=== PATIENT | male | born 1950 | race Two or more races ===

== ENCOUNTER → 2024-09-28 | Outpatient (CLI) | payer OTHER, SELFPAY ==
[2024-09-28 12:13] LABS: Basophils % (Auto) 1 % (0-2.5); Eosinophils # (Auto) 0.5 Thou/mm3 (0.0-0.5); Eosinophils % (Auto) 9 % (0-10); Hematocrit 40.7 % (41.0-53.0); Hemoglobin 13.9 g/dL (13.5-16.0); Immature Granulocytes % (Auto) 0 % (0-0); Immature Granulocytes Auto 0.02 Thou/mm3 (0.00-0.00); Lymphocytes # (Auto) 1.6 Thou/mm3 (1.0-4.8); Lymphocytes % (Auto) 28 % (10-50); Mean Corpuscular HGB Conc 34.2 g/dl (31.0-37.0); Mean Corpuscular Hemoglobin 31.8 pg (25.0-35.0); Mean Corpuscular Volume 93 fL (80-100); Monocytes # (Auto) 0.4 Thou/mm3 (0.0-0.8); Monocytes % (Auto) 7 % (0-12); Neutrophils # (Auto) 3.1 Thou/mm3 (1.8-7.7); Neutrophils % (Auto) 55 % (37-80); Nucleated Red Blood Cell % 0 /100 WBC (0); Platelet Count 164 Thou/mm3 (140-440); RDW Standard Deviation 50.4 fL (35.1-43.9); Red Blood Count 4.37 Miln/mm3 (4.50-5.90); White Blood Count 5.7 Thou/mm3 (3.8-10.6)
[2024-09-28 12:35] LABS: Alanine Aminotransferase 45 U/L (10-49); Albumin, Serum 3.4 gm/dL (3.4-4.8); Albumin/Globulin Ratio 0.9 (1.2-2.2); Alkaline Phosphatase 139 U/L (46-116); Anion Gap 7 (7-16); Aspartate Amino Transferase 62 U/L (0-34); BUN/Creatinine Ratio 14 Ratio (12-20); Bilirubin,Total 2.6 mg/dL (0.3-1.2); Blood Urea Nitrogen 10 mg/dL (9-23); Calcium 9.1 mg/dL (8.3-10.6); Calcium (Corrected) 9.6 mg/dL (8.5-10.1); Carbon Dioxide 28.4 mMol/L (20.0-31.0); Chloride 104 mMol/L (98-107); Creatinine (Component) 0.7 mg/dL (0.6-1.3); Globulin 3.6 gm/dL (2.3-3.5); Glucose 128 mg/dL (74-106); Osmolality,Calculated 278 (275-295); Potassium 3.7 mMol/L (3.4-5.1); Sodium 139 mMol/L (136-145); Thyroid Stimulating Hormone 5.87 uIU/mL (0.55-4.78); eGFR > 60 See Note
[2024-10-06 06:33] LABS: ANA Screen, IFA NEGATIVE (NEGATIVE)
== END | disposition home or self-care (01) ==
LOC: COPL 11:16
PROVIDERS: PCP Internal Medicine; Referring Provider Specialist; Visit Provider Specialist
DX: R10.32 Left lower quadrant pain (principal); R14.0 Abdominal distension (gaseous); R10.13 Epigastric pain; R53.83 Other fatigue
CPT/HCPCS: 36415; 80053; 84443; 85025; 86038

== ENCOUNTER 2024-10-09 11:51 | Emergency (ER) | payer OTHER, SELFPAY ==
[2024-10-09 11:56] VITALS: BP 130/88; PULSE 63; RESP 19; TEMP 37; O2SAT 99; BMI 38.0
--- NOTE | 2024-10-09 12:13 | PD.EDRME ---
Rapid Medical Screening Exam RME Arrival date/time: 10/09/24 11:51 74-year-old male presents to the emergency department with complaints of throat pain and tightness for 3 weeks. Was sent over for abnormal CT. I have greeted and performed a focused initial assessment of this patient. Initial appropriate labs ordered at this time. A comprehensive ED assessment and evaluation of the patient and analysis of all test and completion of medical decision making process will be conducted by additional ED provider. Chief Complaint: Dental/Oral/Throat Time Seen by Provider: 10/09/24 12:12 Vital signs: Vital Signs Temperature 98.6 F 10/09/24 11:56 Pulse Rate 63 10/09/24 11:56 Respiratory Rate 19 10/09/24 11:56 Blood Pressure 130/88 H 10/09/24 11:56 Pulse Oximetry (%) 99 10/09/24 11:56 Oxygen Delivery Method Room Air 10/09/24 11:56
[2024-10-09 12:58] LABS: Basophils % (Auto) 0 % (0-2.5); Eosinophils # (Auto) 0.6 Thou/mm3 (0.0-0.5); Eosinophils % (Auto) 8 % (0-10); Hematocrit 46.8 % (41.0-53.0); Hemoglobin 15.7 g/dL (13.5-16.0); Immature Granulocytes % (Auto) 0 % (0-0); Immature Granulocytes Auto 0.02 Thou/mm3 (0.00-0.00); Lymphocytes # (Auto) 1.4 Thou/mm3 (1.0-4.8); Lymphocytes % (Auto) 21 % (10-50); Mean Corpuscular HGB Conc 33.5 g/dl (31.0-37.0); Mean Corpuscular Hemoglobin 31.5 pg (25.0-35.0); Mean Corpuscular Volume 94 fL (80-100); Monocytes # (Auto) 0.4 Thou/mm3 (0.0-0.8); Monocytes % (Auto) 7 % (0-12); Neutrophils # (Auto) 4.3 Thou/mm3 (1.8-7.7); Neutrophils % (Auto) 64 % (37-80); Nucleated Red Blood Cell % 0 /100 WBC (0); Platelet Count 150 Thou/mm3 (140-440); Red Blood Count 4.98 Miln/mm3 (4.50-5.90); White Blood Count 6.8 Thou/mm3 (3.8-10.6)
[2024-10-09 13:21] LABS: INR 1.3 (0.9-1.3); Partial Thromboplastin Time 25.4 Seconds (22.0-36.0); Prothrombin Time 13.5 Seconds (9.0-12.2)
[2024-10-09 13:22] LABS: Alanine Aminotransferase 24 U/L (10-49); Albumin, Serum 3.9 gm/dL (3.4-4.8); Albumin/Globulin Ratio 0.9 (1.2-2.2); Alkaline Phosphatase 146 U/L (46-116); Anion Gap 5 (7-16); Aspartate Amino Transferase 27 U/L (0-34); BUN/Creatinine Ratio 13 Ratio (12-20); Bilirubin,Total 2.6 mg/dL (0.3-1.2); Blood Urea Nitrogen 10 mg/dL (9-23); Calcium 9.7 mg/dL (8.3-10.6); Calcium (Corrected) 9.8 mg/dL (8.5-10.1); Carbon Dioxide 31.1 mMol/L (20.0-31.0); Chloride 99 mMol/L (98-107); Creatinine (Component) 0.8 mg/dL (0.6-1.3); Globulin 4.2 gm/dL (2.3-3.5); Glucose 138 mg/dL (74-106); Magnesium 2.1 mg/dL (1.6-2.6); Osmolality,Calculated 271 (275-295); Phosphorous 2.6 mg/dL (2.4-5.1); Sodium 135 mMol/L (136-145); Total Protein 8.1 gm/dL (5.7-8.2); eGFR > 60 See Note
[2024-10-09] MEDS: DEXAMETHASONE SOD PHOS INJ 10 MG/ML VIAL 8 MG IV (14:32)
--- NOTE | 2024-10-09 16:06 | PD.EDNECK ---
ED Neck Injury Pain RME/HPI General Chief Complaint: Dental/Oral/Throat Stated Complaint: THROAT RESTRCTED; SENT OVER AFTER THROAT CT Time Seen by Provider: 10/09/24 12:12 Arrival date/time: 10/09/24 11:51 RME / HPI RME / HPI Narrative: 10/09/24 11:51 74-year-old male known case of diabetes, hypertension, liver disease, was brought to the ED by his daughter due to findings on CT scan of his neck. Patient has been having dysphagia for the past 2 months, found to have a neck mass in which he was referred to CT scan and was found to have a large mass on the right side impinging airway. Patient reported changing voice, difficulty swallowing, however no saliva drooling and no pain. Patient denied any fever or chills and denied any redness or hotness of the overlying skin or ear discharge. The daughter reported that he has been following up with the oncologist a biopsy was done and it was inconclusive. Related Data Home Medications ?Medication ?Instructions ?Recorded ?Confirmed metoprolol tartrate 25 mg tablet 25 mg PO BID 11/27/20 02/20/22 donepezil 10 mg tablet 10 mg PO QDAY 02/20/22 02/20/22 Previous Rx's ?Medication ?Instructions ?Recorded citalopram 20 mg tablet (Celexa) 20 mg PO QDAY #30 tabs 01/01/20 lactulose 10 gram/15 mL (15 mL) 20 g (30 mL) PO BID #1,440 mL 12/05/21 oral solution Allergies Allergy/AdvReac Type Severity Reaction Status Date / Time No Known Allergies Allergy Verified 10/09/24 11:54 ED Exam Narrative Physical exam: GEN: AOx3, able to speak full sentences, hoarseness of voice, no stridor. HEENT: Right sided neck swelling,, I will hold on the throat exam due to airway narrowing, oral mucosa moist, neck supple CVS: RRR, S1-S2 present, no murmurs appreciated RESP: CTAB GI: soft,non distended, non tender, NBS MSK: able to move all 4 limbs, no lower extremity edema SKIN: warm and dry SUPERVISOR VENDOR QUALITY: CN II-XII and Sensation grossly intact. Course Quality Measures none Orders Category Date Time Status Insert IV STAT Care 10/09/24 12:56 Active NPO NOW Care 10/09/24 12:56 Active Referral - Vessel Engineer Stat Cons 10/09/24 14:01 Active Diet NPO (NOW) Diet 10/09/24 12:56 Active CBC Stat Lab 10/09/24 12:40 Completed Comprehensive Metabolic Panel Stat Lab 10/09/24 12:40 Completed Magnesium Stat Lab 10/09/24 12:40 Completed PT [Prothrombin Time with INR] Stat Lab 10/09/24 12:40 Completed PTT [Partial Thromboplastin Time] Stat Lab 10/09/24 12:40 Completed Phosphorous Stat Lab 10/09/24 12:40 Completed Dexamethasone Inj [Decadron Inj] Med 10/09/24 17:10 Discontinued 4 mg IVP X1 ONE Dexamethasone Inj [Decadron Inj] Med 10/09/24 12:56 Discontinued 8 mg IV X1 ONE Ketorolac Inj [Toradol Inj] Med 10/09/24 17:22 Discontinued 30 mg IVP X1 ONE Sodium Chloride 0.9% 1000 ml [Ns] 1,000 ml Med 10/09/24 17:10 Active IV 100 mls/hr Vital Signs Vital signs: Vital Signs Temperature 98.6 F 10/09/24 11:56 Pulse Rate 63 10/09/24 11:56 Respiratory Rate 19 10/09/24 11:56 Blood Pressure 130/88 H 10/09/24 11:56 Pulse Oximetry (%) 99 10/09/24 11:56 Oxygen Delivery Method Room Air 10/09/24 11:56 Neck Pain MDM Narrative MDM Narrative:: On evaluation patient was found to have change in voice, however his vital stable. Patient was given dexamethasone 8 mg IV x 1. 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 How is presenting disease/condition affected by chronic disease/condition?: no chronic disease Evaluation data The following diagnostics were reviewed and interpreted by me:: lab results, radiology exam(s) and EKG tracing(s) Lab and/or radiology exams considered but not ordered:: none Interpretation Summary: Threatend airway 2/2 neck mass Medications / Prescriptions Medications or Prescriptions considered but not ordered:: none Medication administrations:: Medication Administration History Sodium Chloride (Ns) 1,000 mls @ 100 mls/hr IV .Q10H CARA Stop: 10/10/24 17:09 Last Admin: 10/09/24 17:58 Dose: 100 mls/hr Documented By: MARIYA Discontinued Medications Dexamethasone Sodium Phosphate (Dexamethasone Sod Phos Inj 10 Mg/Ml Vial) 8 mg IV X1 ONE Stop: 10/09/24 12:57 Last Admin: 10/09/24 14:32 Dose: 8 mg Documented By: MARIYA Dexamethasone Sodium Phosphate (Dexamethasone Sod Phos Inj 4 Mg/Ml Vial) 4 mg IVP X1 ONE; Protocol Stop: 10/09/24 17:11 Last Admin: 10/09/24 17:32 Dose: 4 mg Documented By: MARIYA Ketorolac Tromethamine (Ketorolac Inj 30 Mg/Ml Vial) 30 mg IVP X1 ONE Stop: 10/09/24 17:23 Last Admin: 10/09/24 17:33 Dose: 30 mg Documented By: MARIYA as above if given Consultations Consultation(s) initiated? (list below): Yes Diagnosis Neck Differential Diagnosis: other Most likely diagnosis given after review of the tests above:: Neck mass with threatened airway Admission Indicated Admission indicated?: indicated Admission Request Was there a request for admission?: Yes Admission Attestation Admission request attestation: Discussed case with [] from Hospitalist service regarding admission. Discussed patients ED course, exam findings, labs, and radiology results. The Hospitalist [agrees,declines] to accept the patient for admission. Disposition Plan Disposition Plan: Transfer Critical Care Time Critical Care Time Critical Care Time: Yes Total Critical Care Time (min.): 30 Attestation: The high probability of sudden, clinically significant deterioration in the patient's condition required the highest level of my preparedness to intervene urgently. The services I provided to this patient were to treat and/or prevent clinically significant deterioration. Services included the following: chart data review, reviewing nursing notes and/or old charts, documentation time, nissan sales consultant collaboration regarding findings and treatment options, medication orders and management, direct patient care, vital sign assessments and ordering, interpreting and reviewing diagnostic studies and lab tests. Aggregate critical care time includes only time during which I was engaged in work directly related to the patient's care, as described above, whether at bedside or elsewhere in the Emergency Department. It did not include time spent performing other reported procedures or the services of residents, students, nurses or physician assistants. Discharge Plan Plan Patient Disposition: [facility] Pt Being Transferred to: [facility] Service Needed for Transfer: Ear, Nose, Throat Prescriptions/Referrals Prescriptions/Med Rec: No Action citalopram [Celexa] 20 mg tablet 20 mg PO QDAY Qty: 30 0RF metoprolol tartrate 25 mg tablet 25 mg PO BID Patient Comments: TAKE 1 TABLET BY MOUTH 2 TIMES A DAY lactulose 10 gram/15 mL (15 mL) solution 20 g PO BID Qty: 1440 0RF donepezil 10 mg Tablet 10 mg PO QDAY Referrals: Rubi Emerson MD [Primary Care Provider] - In 1 week Problem List Clinical Impression: Mass in neck Patient/Caregiver Discharge Instructions Print Language: [place] Stand Alone Forms: Dina Award Info., Patient Portal Info Letter
[2024-10-09 16:39] VITALS: BP 166/87; PULSE 68; RESP 19; TEMP 36.8; O2SAT 98
--- NOTE | 2024-10-09 17:21 | PC.CM ---
Addendum entered by Nikolai Rodrigues RN 10/09/24 18:34: Flight crew confirmation of cook pickled meat at 1925. Addendum entered by Nikolai Rodrigues RN 10/09/24 18:06: TC RN contacted to set up transport via flight crew for compromised airway. E[place] at airport 191. Addendum entered by Nikolai Rodrigues RN 10/09/24 18:04: Patient accepted at [facility] by Dr. Zay Roque, phone number for report [phone], ER CN updated and packet delivered. Addendum entered by Nikolai Rodrigues RN 10/09/24 17:23: 1645-Transfer packets created x 2 and copy of images on disc. Dr. Dasilva requesting air transport due to compromised airway. Original Note: 1635- [facility] declined as they do not have ENT services. 1630- Transfer initiated for ENT sevices, clinicals sent to [facility], [facility], and [facility].
[2024-10-09] MEDS: DEXAMETHASONE SOD PHOS INJ 4 MG/ML VIAL IVP (17:32)
[2024-10-09] MEDS: KETOROLAC INJ 30 MG/ML VIAL IVP (17:33)
[2024-10-09] MEDS: SODIUM CHLORIDE 0.9% 1000 ML 1,000 ML 100 ML IV (17:58)
--- NOTE | 2024-10-09 19:11 | PC.NURSE ---
Called and gave report to Malcolm at [facility] in [place].
[2024-10-09 19:25] VITALS: BP 130/86; PULSE 66; RESP 20; TEMP 36.8; O2SAT 95
--- NOTE | 2024-10-09 19:36 | PC.NURSE ---
Report was given to Steve Mckenna RN and [facility].
== END 2024-10-09 19:40 | disposition short-term general hospital (02) ==
PROVIDERS: Nurse Practitioner Primary Care; Student in an Organized Health Care Education/Training Program; Emergency Provider Emergency Medicine; PCP Internal Medicine
DX: R22.1 Localized swelling, mass and lump, neck (principal); Z75.1 Person awaiting admission to adequate facility elsewhere
CPT/HCPCS: 36415; 80053; 83735; 84100; 85025; 85610; 85730; 96374; 96375; 96376; 99291; J1100; J1885; J7030

== ENCOUNTER 2024-12-03 17:11 | Inpatient (IN) | payer OTHER, MEDICAID, SELFPAY ==
[2024-12-03 14:45] VITALS: BMI 29.6
--- NOTE | 2024-12-03 15:54 | PC.SS ---
This SSD met with resident RP Elaine SantaEduardo, went over admission packet and facility question. Resident is DNR with selective treatment, jew caodaism and will accept spiritual care visits from inside sales professional services. Elaine said resident has history of depression, she states she is unaware what has caused his depression as he has a long history of it. Elaine states her father is a registered voter. Resident is not conserved or has a POA in place, this SSD has offered to assist with POA/Advance Directive. Elaine said she will speak with her sister about completing POA if father can participate otherwise she would look into a conservatorship. resident wears glasses is not hard or hearing. Resident will be seen by integrated logistics programs director, laminator hand and dentist for initial consultation. This SSD to make daily contact with resident and monitor for changes in mood and behavior and offers emotional support as he will be adjusting to new environment.
--- NOTE | 2024-12-03 16:39 | XR_ITS ---
Examination: AP chest single view Findings: AP portable upright chest single view Exam date and time: December 03, 2024 1720 hrs. Indications: Hypoxic respiratory failure, tracheal tube placement Findings: Tracheostomy tube tip 5 cm above eveline Atelectasis versus mild pneumonia right base Normal heart size Reduced inspiratory effort Impression: Tracheostomy tube tip 5 cm above eveline
--- NOTE | 2024-12-03 16:42 | EKG_ITS ---
[facility] Test Date: 2024-12-04 Pat Name: RAMON RAMIREZ Department: Room: - Gender: Male Bandoleer Packer: BAKARI : 1950 Requested By: Anuel Paul Order Number: [id number] Reading MD: Anuel Paul Measurements Intervals Concan Rate: 72 P: 16 MS: 124 QRS: 7 QRSD: 86 T: -31 QT: 350 QTc: 386 Interpretive Statements SINUS RHYTHM NONSPECIFIC T-WAVE ABNORMALITY Compared to ECG 05/08/2022 16:10:24 No significant changes /store/S0/[id number]/ecg/[id number].pdf
[2024-12-03 16:45] VITALS: PULSE 90; RESP 20; O2SAT 94
[2024-12-03 17:17] LABS: Base Excess 7 (-3-3); HCO3 33 mEq/L (20-26); Inspired Oxygen, FIO2 78 %; O2 Saturation 90 % (91-98); PCO2 51 mmHg (32.0-48.0); PO2 58 mmHg (83-108); pH, Arterial 7.41 (7.35-7.45)
[2024-12-03 17:18] LABS: Allen Test Performed/OK; Puncture Site Right Radial
[2024-12-03 18:14] LABS: Basophils % (Auto) 0 % (0-2.5); Eosinophils # (Auto) 0.6 Thou/mm3 (0.0-0.5); Eosinophils % (Auto) 3 % (0-10); Hematocrit 39.4 % (41.0-53.0); Hemoglobin 13.1 g/dL (13.5-16.0); Immature Granulocytes % (Auto) 1 % (0-0); Immature Granulocytes Auto 0.12 Thou/mm3 (0.00-0.00); Lymphocytes # (Auto) 2.3 Thou/mm3 (1.0-4.8); Lymphocytes % (Auto) 13 % (10-50); Mean Corpuscular HGB Conc 33.2 g/dl (31.0-37.0); Mean Corpuscular Hemoglobin 30.1 pg (25.0-35.0); Mean Corpuscular Volume 91 fL (80-100); Monocytes # (Auto) 1.5 Thou/mm3 (0.0-0.8); Monocytes % (Auto) 8 % (0-12); Neutrophils # (Auto) 13.3 Thou/mm3 (1.8-7.7); Neutrophils % (Auto) 75 % (37-80); Nucleated Red Blood Cell % 0 /100 WBC (0); Platelet Count 174 Thou/mm3 (140-440); RDW Standard Deviation 51.9 fL (35.1-43.9); Red Blood Count 4.35 Miln/mm3 (4.50-5.90); White Blood Count 17.8 Thou/mm3 (3.8-10.6)
[2024-12-03 18:50] VITALS: PULSE 81; RESP 18; O2SAT 99
[2024-12-03 19:00] LABS: Albumin, Serum 3.4 gm/dL (3.4-4.8); Anion Gap 8 (7-16); BUN/Creatinine Ratio 28 Ratio (12-20); Blood Urea Nitrogen 14 mg/dL (9-23); Calcium 9.1 mg/dL (8.3-10.6); Calcium (Corrected) 9.6 mg/dL (8.5-10.1); Carbon Dioxide 30.1 mMol/L (20.0-31.0); Chloride 98 mMol/L (98-107); Creatinine (Component) 0.5 mg/dL (0.6-1.3); Glucose 111 mg/dL (74-106); Glucose,Fasting 111 mg/dL (74-106); Osmolality,Calculated 273 (275-295); Phosphorous 2.7 mg/dL (2.4-5.1); Potassium 3.9 mMol/L (3.4-5.1); Sodium 136 mMol/L (136-145); Thyroid Stimulating Hormone 8.97 uIU/mL (0.55-4.78); eGFR > 60 See Note
--- NOTE | 2024-12-03 19:04 | PC.NURSE ---
Resident arrived from [facility] in [place] at 1645. Admitted under the care of Dr. Paul. Resident arrived via gurney accompanied by RT and ambulance crew. General assessment done upon arrival. Res. alert and oriented x3. presents aphasia. trach in place, blow by need it for oxygen need. resident sating 94/95 %. placed on continuous pulse ox as new admission. Resident able to follow commands weakness noted to all extremities but still able to move on command. No skin issues noted other than large bruise to top of left hand. Resident had a brand new PEG tube insertion today at previous facility, Dressing dry and intact. Initiated tube feeding at rate of 10ml to increased 10ml Q8hr till reach goal of 80. Family was also interviewed and offered education. Notified carried out almost all orders. Hand off report will be given to Mary WISE nurse. Also ABG critical report received Denise LINO called new order to place resident on % with 10L. Vital signs stable at this time. Please refer to Vital signs sheet.
--- NOTE | 2024-12-03 22:30 | PD.SAHP ---
Physical exam Physical Exam Vital signs: Temp Pulse Resp BP Pulse Ox O2 Del Method O2 Flow Rate 97.1 F 82 18 107/62 99 Blow-by 6 12/06/24 06:00 12/06/24 06:00 12/06/24 06:00 12/06/24 06:00 12/06/24 06:00 12/06/24 06:00 12/06/24 00:05 FiO2 28 12/06/24 00:05 Narrative: Pt looks comfortable and responds appropriately to simple commands with nod of his head VSS Constitutional Constitutional: no acute distress, average body habitus and cooperative HEENT Exam Head: Present normocephalic and atraumatic Eye: Present EOMI and PERRL ENT: Present mucous membranes moist Neck Exam Comments: severe lymph adenopathy of the Head and Neck chains predominantly of the R side with marked swelling Chest/Breast/Axilla Exam Comments: NAD Respiratory Exam Respiratory: Present chest non-tender, lungs clear, normal breath sounds and no resp distress Comments: pt with a Tracheostomy in place t0 blow by and has some secretions needing suctioning Cardiovascular Exam Cardiovascular: Present RRR, S1 and S2 Abdominal Exam Abdominal: Present soft and normoactive bowel sounds Comments: Feeding G tube in place and clean Rectal Exam Comments: deferred Exam Comments: NAD Extremities Exam Comments: trace edema Back/Spine/Pelvis Exam Comments: NAD Skin Exam Comments: NAD Neurological Exam Neurological: Present alert (responds with nod of his head and is appropreate and does try to formulate words but presence of tracheostomy makes it difficult for adequate phonation) Comments: He has had history of Dementia as mentioned in his notes but difficult to test in detail considering his current status Psychiatric Exam Psychiatric: Present normal affect and normal thought process Rehabilitation potential Diagnosis (1) Papillary thyroid carcinoma: Status: Chronic Assessment & Plan: End stage thyroid Papillary cancer with comfort measures (2) Lymphadenopathy of head and neck: Status: Chronic (3) History of dementia: Status: Chronic (4) Diabetes: Status: Chronic (5) HTN (hypertension): Status: Chronic (6) Tracheostomy in place: Status: Chronic (7) PEG (percutaneous endoscopic gastrostomy) status: Status: Chronic Assessment & Plan Assessment: End stage thyroid cancer on comfort measures and DNR code status with comorbidities as outlined Prognosis Prognosis: Very poor prognosis If patient not informed of condion, describe why: Pt is well aware of the diagnosis and the terminal nature of the illness and has decided on comfort measures. Goals Full medical intervention for mitigating pain and discomfort/nutritional and emotional support towards pt's end of life decisions. HPI History of Present Illness HPI: Pt is a 74 yrs of male pt with terminal end stage thyroid papillary carcinoma with extensive involvement of the head and neck lymph nodes and with a Tracheostomy to blow by and feeding G tube and comorbidities of DM-II, HTN; h/o Dementia; h/o cirrhosis and aspiration pneumonia is admitted to DPSNF at [facility] for superintendent container terminal care through his illness with objective as per pt requests being to mitigate pain and discomfort through the course of his terminal illness.
[2024-12-04] VITALS (9 sets, daily range): BP systolic 106–134; BP diastolic 70–80; PULSE 71–86; RESP 16–20; TEMP 36.5–36.8; O2SAT 95–100; BMI 13.0
[2024-12-04] MEDS: LACTULOSE 10 GM/15 ML SOLUTION GT ×3 (05:32→21:10)
[2024-12-04] MEDS: LEVOTHYROXINE 50 MCG TABLET GT (05:33)
[2024-12-04] MEDS: IPRATROPIUM BROMIDE 0.2 MG/ML SOLUTION 2.5 MG INH ×3 (06:27→18:48)
--- NOTE | 2024-12-04 07:41 | PC.NURSE ---
Resident with admitting order of Xifaxan. Dr Paul was here this morning, seen resident and ordered to discontinue the medicine.
[2024-12-04] MEDS: CYANOCOBALAMIN (VITAMIN B-12) 500 MCG TABLET 1000 MCG GT (09:38)
[2024-12-04] MEDS: FINASTERIDE 5 MG TABLET GT (09:38)
[2024-12-04] MEDS: FOLIC ACID 1 MG TABLET GT (09:39)
[2024-12-04] MEDS: PARoxetine 10 MG TABLET GT (09:39)
[2024-12-04] MEDS: METOPROLOL 25 MG TABLET GT (09:39)
[2024-12-04] MEDS: POTASSIUM CHLORIDE 20 MEQ TAB.ER.PRT GT (09:40)
[2024-12-04] MEDS: ENOXAPARIN SODIUM 40 MG/0.4 ML SYRINGE SC (09:42)
[2024-12-04] MEDS: SCOPOLAMINE 1.5 MG TD (11:04)
--- NOTE | 2024-12-04 12:07 | PC.SS ---
Room visit: Resident is laying in bed with head of the bed elevated with call light properly placed with no signs of distress. His daughter Destini is at bedside. Resident is alert and non verbal. Resident has no changes in care or condition he is on blow by with trach in place. He is here for long terms subacute care, he will remain in current care and will have all subacute care needs met by staff. This SSD will continue to make daily contact with resident and monitor for changes in mood and behavior.
--- NOTE | 2024-12-04 17:34 | PC.NURSE ---
Resident on celexa and Paxil for depression posing a possible duplication of therapy as per pharmacy. Dr Paul made aware and reviewed resident's medication with order received to decrease the dose of Paxil to 5 mg x 7 days, re-eval and to monitor serotonin condition. TOY MAKER in [facility] made aware. Called resident's daughter Elaine and made aware and agreed.
[2024-12-05] VITALS (10 sets, daily range): BP systolic 112–120; BP diastolic 62–76; PULSE 72–93; RESP 18–21; TEMP 36.4–37; O2SAT 93–99
[2024-12-05] MEDS: IPRATROPIUM BROMIDE 0.2 MG/ML SOLUTION 2.5 MG INH ×4 (00:52→19:05)
[2024-12-05] MEDS: LACTULOSE 10 GM/15 ML SOLUTION GT ×3 (05:25→21:00)
[2024-12-05] MEDS: LEVOTHYROXINE 50 MCG TABLET GT (05:25)
[2024-12-05] MEDS: ENOXAPARIN SODIUM 40 MG/0.4 ML SYRINGE SC (08:12)
[2024-12-05] MEDS: CITALOPRAM HYDROBROMIDE 10 MG TABLET GT (08:17)
[2024-12-05] MEDS: FINASTERIDE 5 MG TABLET GT (08:18)
[2024-12-05] MEDS: CYANOCOBALAMIN (VITAMIN B-12) 500 MCG TABLET 1000 MCG GT (08:18)
[2024-12-05] MEDS: FOLIC ACID 1 MG TABLET GT (08:18)
[2024-12-05] MEDS: METOPROLOL 25 MG TABLET GT ×2 (08:18→20:59)
[2024-12-05] MEDS: PARoxetine 10 MG TABLET 5 MG GT (08:19)
[2024-12-05] MEDS: POTASSIUM CHLORIDE 20 MEQ TAB.ER.PRT GT (08:20)
[2024-12-05] MEDS: INSULIN REGULAR, HUMAN 100 UNIT/ML VIAL SC (17:48)
--- NOTE | 2024-12-05 18:42 | PC.NURSE ---
Resident noted have more blood (bright red) on his secretions, called Dr stallworth and made aware with new orders received to hold the Lovenox for 3 days and do labs tomorrow
[2024-12-05] MEDS: DONEPEZIL HCL 5 MG TABLET 10 MG GT (20:59)
[2024-12-06] VITALS (10 sets, daily range): BP systolic 105–120; BP diastolic 56–78; PULSE 75–97; RESP 18–20; TEMP 36.2–37; O2SAT 84–100
[2024-12-06] MEDS: IPRATROPIUM BROMIDE 0.2 MG/ML SOLUTION 2.5 MG INH ×4 (00:05→18:10)
[2024-12-06] MEDS: LEVOTHYROXINE 50 MCG TABLET GT (05:25)
[2024-12-06] MEDS: LACTULOSE 10 GM/15 ML SOLUTION GT ×3 (05:25→21:10)
[2024-12-06] MEDS: INSULIN REGULAR, HUMAN 100 UNIT/ML VIAL SC (05:47)
[2024-12-06 08:00] LABS: Basophils % (Auto) 0 % (0-2.5); Eosinophils # (Auto) 1.4 Thou/mm3 (0.0-0.5); Eosinophils % (Auto) 12 % (0-10); Hematocrit 36.1 % (41.0-53.0); Hemoglobin 11.8 g/dL (13.5-16.0); Immature Granulocytes % (Auto) 0 % (0-0); Immature Granulocytes Auto 0.05 Thou/mm3 (0.00-0.00); Lymphocytes % (Auto) 16 % (10-50); Mean Corpuscular HGB Conc 32.7 g/dl (31.0-37.0); Mean Corpuscular Hemoglobin 30.2 pg (25.0-35.0); Mean Corpuscular Volume 92 fL (80-100); Monocytes % (Auto) 8 % (0-12); Neutrophils # (Auto) 7.7 Thou/mm3 (1.8-7.7); Neutrophils % (Auto) 63 % (37-80); Nucleated Red Blood Cell % 0 /100 WBC (0); Platelet Count 133 Thou/mm3 (140-440); RDW Standard Deviation 53.5 fL (35.1-43.9); Red Blood Count 3.91 Miln/mm3 (4.50-5.90); White Blood Count 12.2 Thou/mm3 (3.8-10.6)
[2024-12-06 08:24] LABS: INR 1.2 (0.9-1.3); Partial Thromboplastin Time 28.2 Seconds (22.0-36.0); Prothrombin Time 12.8 Seconds (9.0-12.2)
--- NOTE | 2024-12-06 08:49 | PD.SAPROG ---
Progress Note - SubAcute DIAGNOSIS (1) Papillary thyroid carcinoma: Status: Chronic (2) Lymphadenopathy of head and neck: Status: Chronic (3) History of dementia: Status: Chronic (4) Diabetes: Status: Chronic (5) HTN (hypertension): Status: Chronic (6) Tracheostomy in place: Status: Chronic (7) PEG (percutaneous endoscopic gastrostomy) status: Status: Chronic OBJECTIVE Most recent vital signs: Last Vital Signs Temp 97.1 F 12/06/24 06:00 Pulse 87 12/06/24 07:19 Resp 18 12/06/24 07:19 BP 107/62 12/06/24 06:00 Pulse Ox 98 12/06/24 07:19 O2 Del Method Blow-by 12/06/24 06:00 O2 Flow Rate 6 12/06/24 07:19 FiO2 28 12/06/24 07:19 Neurological:: alert Speech:: nods head and mouths words Answers questions:: yes Respiratory:: shallow breathing Cardiovascular: RRR Abdomen: soft Tracheostomy:: to blow by Feeding per:: G tube Complaints:: none ASSESSMENT & PLAN Assessment: End stage thyroid cancer on comfort measures and DNR code status with comorbidities as outlined Pt noticed to have blood tinged respiratory secretions and Lovenox held for 3 days and monitored as well as PT/ PTT ordered. Plan: Assure comfort and every support
[2024-12-06] MEDS: CITALOPRAM HYDROBROMIDE 10 MG TABLET GT (09:33)
[2024-12-06] MEDS: FINASTERIDE 5 MG TABLET GT (09:35)
[2024-12-06] MEDS: METOPROLOL 25 MG TABLET GT ×2 (09:35→20:53)
[2024-12-06] MEDS: FOLIC ACID 1 MG TABLET GT (09:35)
[2024-12-06] MEDS: CYANOCOBALAMIN (VITAMIN B-12) 500 MCG TABLET 1000 MCG GT (09:35)
[2024-12-06] MEDS: PARoxetine 10 MG TABLET 5 MG GT (09:36)
[2024-12-06] MEDS: POTASSIUM CHLORIDE 20 MEQ TAB.ER.PRT GT (09:39)
--- NOTE | 2024-12-06 17:40 | PC.NURSE ---
MD> made aware result of PT/PTT and CBC, and order to decrease lovenox to 30mg daily and start on 3 days (12/09/24).
[2024-12-06] MEDS: DONEPEZIL HCL 5 MG TABLET 10 MG GT (20:53)
[2024-12-07] VITALS (7 sets, daily range): BP systolic 106–114; BP diastolic 64–70; PULSE 72–93; RESP 18–22; TEMP 36.1–36.7; O2SAT 95–98
[2024-12-07] MEDS: IPRATROPIUM BROMIDE 0.2 MG/ML SOLUTION 2.5 MG INH ×3 (00:38→19:10)
[2024-12-07] MEDS: LACTULOSE 10 GM/15 ML SOLUTION GT ×3 (05:34→21:15)
[2024-12-07] MEDS: LEVOTHYROXINE 50 MCG TABLET GT (05:34)
--- NOTE | 2024-12-07 08:51 | PC.NURSE ---
During IP rounds, noted resident with moderate amound of bloody secretions draining from T-piece. Altagracia GARCIA was aware and anti-coag therapy is being monitored. Resident had removed a towel meant to absorb secretions, replaced with two clean, dry washcloths and explained to Mr. Clark his caregivers would be in to clean him and redress him; he should please leave the washcloths in place. He nodded understanding; unsure of his full comprehension regarding this matter. Staff will continue to check.
[2024-12-07] MEDS: CITALOPRAM HYDROBROMIDE 10 MG TABLET GT (09:11)
[2024-12-07] MEDS: CYANOCOBALAMIN (VITAMIN B-12) 500 MCG TABLET 1000 MCG GT (09:12)
[2024-12-07] MEDS: FINASTERIDE 5 MG TABLET GT (09:12)
[2024-12-07] MEDS: PARoxetine 10 MG TABLET 5 MG GT (09:13)
[2024-12-07] MEDS: FOLIC ACID 1 MG TABLET GT (09:13)
[2024-12-07] MEDS: POTASSIUM CHLORIDE 20 MEQ TAB.ER.PRT GT (09:14)
[2024-12-07] MEDS: SCOPOLAMINE 1.5 MG TD (09:15)
--- NOTE | 2024-12-07 11:33 | PC.NURSE ---
Spoke with Dr Paul and verbally reported resident's sputum c & s results. With order received to do CBC and procalcitonin.
[2024-12-07 14:29] LABS: Basophils % (Auto) 0 % (0-2.5); Eosinophils # (Auto) 1.1 Thou/mm3 (0.0-0.5); Eosinophils % (Auto) 10 % (0-10); Hematocrit 32.1 % (41.0-53.0); Hemoglobin 10.5 g/dL (13.5-16.0); Immature Granulocytes % (Auto) 1 % (0-0); Immature Granulocytes Auto 0.06 Thou/mm3 (0.00-0.00); Lymphocytes # (Auto) 1.9 Thou/mm3 (1.0-4.8); Lymphocytes % (Auto) 17 % (10-50); Mean Corpuscular HGB Conc 32.7 g/dl (31.0-37.0); Mean Corpuscular Hemoglobin 29.9 pg (25.0-35.0); Mean Corpuscular Volume 92 fL (80-100); Monocytes % (Auto) 9 % (0-12); Neutrophils # (Auto) 7.2 Thou/mm3 (1.8-7.7); Neutrophils % (Auto) 64 % (37-80); Nucleated Red Blood Cell % 0 /100 WBC (0); Platelet Count 129 Thou/mm3 (140-440); RDW Standard Deviation 52.4 fL (35.1-43.9); Red Blood Count 3.51 Miln/mm3 (4.50-5.90); White Blood Count 11.3 Thou/mm3 (3.8-10.6)
[2024-12-07 16:53] LABS: Procalcitonin 0.22 ng/ml (0.0-0.49)
--- NOTE | 2024-12-07 17:27 | PC.NURSE ---
Called Dr stallworth and made aware of the CBC, procalcitonin results. No new orders made.
[2024-12-07] MEDS: DONEPEZIL HCL 5 MG TABLET 10 MG GT (20:45)
[2024-12-07] MEDS: METOPROLOL 25 MG TABLET GT (20:45)
[2024-12-08] VITALS (8 sets, daily range): BP systolic 107–124; BP diastolic 65–70; PULSE 81–104; RESP 18–22; TEMP 36.7–37; O2SAT 94–97
[2024-12-08] MEDS: IPRATROPIUM BROMIDE 0.2 MG/ML SOLUTION 2.5 MG INH ×4 (00:40→18:30)
[2024-12-08] MEDS: INSULIN REGULAR, HUMAN 100 UNIT/ML VIAL SC (05:26)
[2024-12-08] MEDS: LACTULOSE 10 GM/15 ML SOLUTION GT ×3 (05:27→21:10)
[2024-12-08] MEDS: LEVOTHYROXINE 50 MCG TABLET GT (05:27)
[2024-12-08] MEDS: CITALOPRAM HYDROBROMIDE 10 MG TABLET GT (08:52)
[2024-12-08] MEDS: FINASTERIDE 5 MG TABLET GT (08:53)
[2024-12-08] MEDS: CYANOCOBALAMIN (VITAMIN B-12) 500 MCG TABLET 1000 MCG GT (08:53)
[2024-12-08] MEDS: FOLIC ACID 1 MG TABLET GT (08:53)
[2024-12-08] MEDS: POTASSIUM CHLORIDE 20 MEQ TAB.ER.PRT GT (08:55)
[2024-12-08] MEDS: PARoxetine 10 MG TABLET 5 MG GT (08:55)
[2024-12-08] MEDS: DONEPEZIL HCL 5 MG TABLET 10 MG GT (20:55)
[2024-12-08] MEDS: METOPROLOL 25 MG TABLET GT (20:55)
[2024-12-09] VITALS (10 sets, daily range): BP systolic 106–124; BP diastolic 68–76; PULSE 77–95; RESP 18–21; TEMP 36.6–37; O2SAT 94–98
[2024-12-09] MEDS: IPRATROPIUM BROMIDE 0.2 MG/ML SOLUTION 2.5 MG INH ×4 (00:40→18:40)
[2024-12-09] MEDS: LACTULOSE 10 GM/15 ML SOLUTION GT ×3 (05:17→21:06)
[2024-12-09] MEDS: LEVOTHYROXINE 50 MCG TABLET GT (05:21)
[2024-12-09] MEDS: INSULIN REGULAR, HUMAN 100 UNIT/ML VIAL SC ×2 (05:32→17:08)
[2024-12-09] MEDS: CITALOPRAM HYDROBROMIDE 10 MG TABLET GT (09:24)
[2024-12-09] MEDS: CYANOCOBALAMIN (VITAMIN B-12) 500 MCG TABLET 1000 MCG GT (09:25)
[2024-12-09] MEDS: FOLIC ACID 1 MG TABLET GT (09:25)
[2024-12-09] MEDS: FINASTERIDE 5 MG TABLET GT (09:25)
[2024-12-09] MEDS: METOPROLOL 25 MG TABLET GT ×2 (09:25→20:52)
[2024-12-09] MEDS: PARoxetine 10 MG TABLET 5 MG GT (09:26)
[2024-12-09] MEDS: POTASSIUM CHLORIDE 20 MEQ TAB.ER.PRT GT (09:26)
--- NOTE | 2024-12-09 13:50 | PC.NURSE ---
Continue to hold Lovenox as per order. Pt still having blood tinged secretion. Will hold x3 days Will re-eval in 3 days.
[2024-12-09] MEDS: DONEPEZIL HCL 5 MG TABLET 10 MG GT (20:51)
[2024-12-10] VITALS (10 sets, daily range): BP systolic 115–120; BP diastolic 64–75; PULSE 81–94; RESP 18–20; TEMP 36.6–37.3; O2SAT 94–98
[2024-12-10] MEDS: IPRATROPIUM BROMIDE 0.2 MG/ML SOLUTION 2.5 MG INH ×4 (01:35→18:30)
[2024-12-10] MEDS: LACTULOSE 10 GM/15 ML SOLUTION GT ×3 (05:17→21:31)
[2024-12-10] MEDS: LEVOTHYROXINE 50 MCG TABLET GT (05:17)
[2024-12-10] MEDS: INSULIN REGULAR, HUMAN 100 UNIT/ML VIAL SC (05:40)
--- NOTE | 2024-12-10 06:47 | PC.NURSE ---
resident laying in bed and resting at this time. no behavioral changes noted due to decreased dosage of Paxil. will continue to monitor.
[2024-12-10] MEDS: CITALOPRAM HYDROBROMIDE 10 MG TABLET GT (09:31)
[2024-12-10] MEDS: METOPROLOL 25 MG TABLET GT ×2 (09:32→21:32)
[2024-12-10] MEDS: FOLIC ACID 1 MG TABLET GT (09:32)
[2024-12-10] MEDS: FINASTERIDE 5 MG TABLET GT (09:32)
[2024-12-10] MEDS: CYANOCOBALAMIN (VITAMIN B-12) 500 MCG TABLET 1000 MCG GT (09:32)
[2024-12-10] MEDS: PARoxetine 10 MG TABLET 5 MG GT (09:33)
[2024-12-10] MEDS: POTASSIUM CHLORIDE 20 MEQ TAB.ER.PRT GT (09:33)
--- NOTE | 2024-12-10 15:15 | PD.SAPROG ---
Progress Note - SubAcute DIAGNOSIS (1) Papillary thyroid carcinoma: Status: Chronic (2) Lymphadenopathy of head and neck: Status: Chronic (3) History of dementia: Status: Chronic (4) Diabetes: Status: Chronic (5) HTN (hypertension): Status: Chronic (6) Tracheostomy in place: Status: Chronic (7) PEG (percutaneous endoscopic gastrostomy) status: Status: Chronic OBJECTIVE Most recent vital signs: Last Vital Signs Temp 98.4 F 12/10/24 12:00 Pulse 84 12/10/24 12:20 Resp 18 12/10/24 12:20 BP 116/72 12/10/24 12:00 Pulse Ox 97 12/10/24 12:20 O2 Del Method Blow-by 12/10/24 06:00 O2 Flow Rate 10 12/10/24 12:20 FiO2 40 12/10/24 12:20 Neurological:: alert Speech:: nods head and mouths words Answers questions:: yes Respiratory:: shallow breathing Cardiovascular: RRR Abdomen: soft Tracheostomy:: to blow by Feeding per:: G tube Complaints:: none ASSESSMENT & PLAN Assessment: End stage thyroid cancer on comfort measures and DNR code status with comorbidities as outlined Pt noticed to have blood tinged respiratory secretions and Lovenox held for few days and monitored as well as PT/ PTT reviewed. Urine noticed to be cloudy with pt feeling mild discomfort. Ordered UA . Plan: Assure comfort and every support
--- NOTE | 2024-12-10 19:39 | PC.NURSE ---
Resident is alert and awake with no complaints of pain or discomfort. Appears to be depressed. Continue to encourage resident to let his needs be known, will continue to monitor resident.
[2024-12-10] MEDS: DONEPEZIL HCL 5 MG TABLET 10 MG GT (21:31)
[2024-12-11] VITALS (11 sets, daily range): BP systolic 104–121; BP diastolic 68–74; PULSE 82–107; RESP 16–22; TEMP 36.6–37; O2SAT 94–98; BMI 12.0
[2024-12-11] MEDS: IPRATROPIUM BROMIDE 0.2 MG/ML SOLUTION 2.5 MG INH ×4 (00:50→18:30)
[2024-12-11] MEDS: LEVOTHYROXINE 50 MCG TABLET GT (05:18)
[2024-12-11] MEDS: LACTULOSE 10 GM/15 ML SOLUTION GT ×3 (05:18→21:25)
--- NOTE | 2024-12-11 05:50 | PC.NURSE ---
Blood sugar checked with sliding scaled re-eval with , continue with current order without re-eval.
[2024-12-11] MEDS: INSULIN REGULAR, HUMAN 100 UNIT/ML VIAL SC (06:15)
[2024-12-11 06:16] LABS: Collection Type, Urine Catheter
[2024-12-11 06:36] LABS: Bilirubin,Urine Negative (Negative); Blood,Urine Negative (Negative); Clarity,Urine Clear (Clear/Hazy); Color,Urine Yellow (Lt Yel-Yel); Culture Indicated,Urine Not Indicated; Glucose, Urine Negative (Negative); Ketones,Urine Negative (Negative); Leukocyte Esterase,Urine Negative (Negative); Nitrite,Urine Negative (Negative); PH,Urine 6.5 (5.0-7.0); Protein,Urine Negative (Neg - Trace); RBC,Urine 1 /hpf (0-3); Specific Gravity,Urine 1.015 (1.001-1.035); Squamous Epithelial Cell,Urine < 1 /hpf (0-5); WBC,Urine 2 /hpf (0-5)
[2024-12-11] MEDS: CITALOPRAM HYDROBROMIDE 10 MG TABLET GT (09:43)
[2024-12-11] MEDS: FINASTERIDE 5 MG TABLET GT (09:44)
[2024-12-11] MEDS: FOLIC ACID 1 MG TABLET GT (09:44)
[2024-12-11] MEDS: METOPROLOL 25 MG TABLET GT (09:44)
[2024-12-11] MEDS: CYANOCOBALAMIN (VITAMIN B-12) 500 MCG TABLET 1000 MCG GT (09:44)
[2024-12-11] MEDS: PARoxetine 10 MG TABLET 5 MG GT (09:45)
[2024-12-11] MEDS: POTASSIUM CHLORIDE 20 MEQ TAB.ER.PRT GT (09:46)
--- NOTE | 2024-12-11 10:29 | PC.NURSE ---
Placed a Oncology consult as per DR. aguilar (Family requested further services for oncology. Spoke personally with Dr. Bergeron.Stated he will be seeing him today her in subacute.
--- NOTE | 2024-12-11 13:16 | ESCONSULT_ITS ---
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 History of present illness: Patient is a 74-year-old gentleman with indolent papillary thyroid cancer that has been growing for several years. This was initially suspected 5 years ago when I was consulted for a right neck mass at the time 3 x 2 cm in the right upper neck which did not want to pursue biopsy or any follow-ups. He came to the ER 10/09/[address] of the neck showing mass in the right oropharyngeal mass extending from the oropharynx on the right side carotid all the way to the apex of the right lung and involving the right larynx. This is impinging on the right oropharynx measuring at least 7.8 x 5.8 x 5.6 cm consistent with malignancy. There was also metastatic right carotid triangle lymphadenopathy. Patient was transferred to [facility] where he stayed for about 2 months getting a biopsy of the thyroid region reportedly papillary carcinoma as well as having a trach and G-tube placed. Due to more multiple morbidities including cirrhosis and dementia felt not to be a surgical candidate and is now at subacute at [facility]. Patient now referred for oncological consultation. Upon transfer patient was noted to have a temperature and respiratory symptoms as placed on steroids and suctioning with relief of symptoms. cc:: cc: Anuel Paul MD Past Medical History Past Medical History Comments PMH COMMENT: Hypertension diabetes mellitus papillary thyroid carcinoma nonresectable CVA coronary artery disease Meds Home Medications and Allergies Home Medications ?Medication ?Instructions ?Recorded ?Confirmed ?Type metoprolol tartrate 25 mg tablet 25 mg PO BID 11/27/20 02/20/22 History donepezil 10 mg tablet 10 mg PO QDAY 02/20/22 02/20/22 History Allergies Allergy/AdvReac Type Severity Reaction Status Date / Time No Known Allergies Allergy Verified 10/09/24 11:54 Exam Vital Signs Temp Pulse Resp BP Pulse Ox O2 Del Method O2 Flow Rate 98.6 F 82 18 120/73 97 Blow-by 10 12/11/24 06:00 12/11/24 12:10 12/11/24 12:10 12/11/24 09:44 12/11/24 12:10 12/11/24 06:00 12/11/24 12:10 FiO2 40 12/11/24 12:10 Narrative Exam Patient appears comfortable with trach and G-tube in place Results Labs 12/07/24 14:05 12/03/24 17:56 Labs: Urine 12/11/24 Range/Units 06:02 Urine Color Yellow (Lt Yel-Yel) Urine Clarity Clear (Clear/Hazy) Urine pH 6.5 (5.0-7.0) Ur Specific [place] 1.015 (1.001-1.035) Urine Protein Negative (Neg - Trace) Urine Glucose (UA) Negative (Negative) ABG Interpretation ABG results: 12/03/24 17:09 ABG pH 7.41 ABG pCO2 51 H ABG pO2 58 L* ABG HCO3 33 H ABG O2 Saturation 90 L ABG Base Excess 7 H Assessment and Plan Additional Assessment & Plan Additional Plan: 1. Locally advanced stage IV papillary thyroid carcinoma unresectable. 2. Has trach and PEG tube in place. Do not think he is a candidate for any type of cancer treatment that will improve the quality of his life. 3. Has minimal respiratory or pain symptoms although appears to be oozing blood with steady drop of hemoglobin. 4. Being well cared for at subacute, do not think that he needs hospice type of support at this time. 5. I will check on him in 2 months time and CBC in about 2 weeks may be helpful to check on his steadily dropping hemoglobin level.
[2024-12-11] MEDS: DONEPEZIL HCL 5 MG TABLET 10 MG GT (20:40)
[2024-12-12 05:08] VITALS: BP 116/65; PULSE 72; RESP 14; TEMP 36.6; O2SAT 95
[2024-12-12] MEDS: LEVOTHYROXINE 50 MCG TABLET GT (05:20)
[2024-12-12] MEDS: LACTULOSE 10 GM/15 ML SOLUTION GT ×3 (05:20→21:18)
[2024-12-12] MEDS: INSULIN REGULAR, HUMAN 100 UNIT/ML VIAL SC (05:39)
--- NOTE | 2024-12-12 06:27 | PC.NURSE ---
RESIDENT TRANSFERRED TO ER FOR FURTHER EVALUATION. RESIDENT AGREED TO BE SENT TO ER. O2 SAT 88% ON FIO2 50%. MORE BLOOD NOTED FROM SECRETIONS. MASS TO RIGHT NECK MORE PRONOUNCED AND DARKER IN COLOR. HR NOTED TO BE 120. RESIDENT ALERT, NO DISCOMFORT NOTED. SENT TO ER VIA BED WITH ASHLEY GARCIA AND RT HORNER.
--- NOTE | 2024-12-12 09:04 | PC.NURSE ---
Received a call from resident's daughter Elaine and she's aware that resident is in ER right now.
[2024-12-12] MEDS: CLAVULANATE GT ×2 (15:03→21:17)
[2024-12-12] MEDS: AMOXICILLIN GT ×2 (15:03→21:17)
--- NOTE | 2024-12-12 15:15 | PC.NURSE ---
Addendum entered by Maryjo Thurston RN 12/12/24 17:51: Dr paul had talked to resident's daughter Linn when resident was in ER before he was sent back to the unit. Explained to her about the prognosis of the resident for resident not to be transferred to ER/acute care Original Note: Resident came back from ER at around 12:57, as per report received from ER nurse, resident was given Vancomycin 1 gm and Rocephin 1 gm for PNA. Resident was given also 1 liter of NS and Reglan 10 mg after Dilaudid [address] Paul was here in the unit when RN was giving report for resident to come back from ER. ER doctor talked to Dr Paul. As per MD, CT was done and mass to neck with necrotic causing bleeding and mass markedly increased in size. ER doctor talked to resident's daughter about his prognosis. Dr Paul to order pain management and antibiotic for PNA per ER. Received an order from Dr Paul to give [place] 5/325mg every 6 hours PRN and to give Augmentin 500 mg every 8 hrs x [address] Paul went to ER and talked to resident's daughter about resident's prognosis too before he was sent back to sub acute.
[2024-12-12 17:13] VITALS: BP 107/63; PULSE 105; RESP 21; TEMP 36.9; O2SAT 99
--- NOTE | 2024-12-12 17:35 | PC.NURSE ---
Resident has been on Paxil 5 mg x 7 days and up for re-eval today. Resident on Celexa 10 mg daily which is a double therapy as per pharmacy and on monitoring for possible effect while on both meds. No effects noted on both meds. Notified Dr Paul and had ordered to D/C the Paxil and continue the Celexa 10 mg.
--- NOTE | 2024-12-12 17:54 | PC.NURSE ---
Resident's daughter Linn at bedside and aware of resident's prognosis. As per Linn it was explained by the doctor that there's nothing much they can do . She added that the tumor got bigger and it's compressing his airway. As per Linn, they have decided not to transfer resident to ER/acute care .
[2024-12-12 18:20] VITALS: PULSE 111; RESP 20; O2SAT 93; O2SAT 98
[2024-12-12] MEDS: IPRATROPIUM BROMIDE 0.2 MG/ML SOLUTION 2.5 MG INH (18:20)
--- NOTE | 2024-12-12 18:38 | PC.NURSE ---
New POLST with DNR with comfort-focused treatment with no transfers to acute care, verbal consent obtained by two nurses from Elaine Clark over the phone.
[2024-12-12 20:46] VITALS: BP 107/62; PULSE 114
[2024-12-12] MEDS: DONEPEZIL HCL 5 MG TABLET 10 MG GT (20:46)
[2024-12-12] MEDS: ACET GT (23:00)
[2024-12-12] MEDS: HYDRO GT (23:00)
[2024-12-13] VITALS (10 sets, daily range): BP systolic 106–119; BP diastolic 62–75; PULSE 82–123; RESP 16–20; TEMP 36.1–37.1; O2SAT 96–100
[2024-12-13] MEDS: IPRATROPIUM BROMIDE 0.2 MG/ML SOLUTION 2.5 MG INH ×4 (00:58→20:30)
[2024-12-13] MEDS: AMOXICILLIN GT ×3 (05:21→21:05)
[2024-12-13] MEDS: CLAVULANATE GT ×3 (05:21→21:05)
[2024-12-13] MEDS: INSULIN REGULAR, HUMAN 100 UNIT/ML VIAL SC (05:21)
[2024-12-13] MEDS: LACTULOSE 10 GM/15 ML SOLUTION GT ×3 (05:22→21:05)
[2024-12-13] MEDS: LEVOTHYROXINE 50 MCG TABLET GT (05:22)
[2024-12-13] MEDS: CITALOPRAM HYDROBROMIDE 10 MG TABLET GT (08:28)
[2024-12-13] MEDS: FOLIC ACID 1 MG TABLET GT (08:29)
[2024-12-13] MEDS: FINASTERIDE 5 MG TABLET GT (08:29)
[2024-12-13] MEDS: CYANOCOBALAMIN (VITAMIN B-12) 500 MCG TABLET 1000 MCG GT (08:29)
[2024-12-13] MEDS: METOPROLOL 25 MG TABLET GT ×2 (08:30→21:05)
[2024-12-13] MEDS: POTASSIUM CHLORIDE 20 MEQ TAB.ER.PRT GT (08:31)
[2024-12-13] MEDS: ACET GT ×2 (08:33→15:30)
[2024-12-13] MEDS: HYDRO GT ×2 (08:33→15:30)
[2024-12-13] MEDS: SCOPOLAMINE 1.5 MG TD (12:56)
[2024-12-13] MEDS: DONEPEZIL HCL 5 MG TABLET 10 MG GT (21:05)
[2024-12-14] VITALS (10 sets, daily range): BP systolic 107–118; BP diastolic 65–73; PULSE 91–116; RESP 19–23; TEMP 36.7–37.1; O2SAT 90–98
[2024-12-14] MEDS: IPRATROPIUM BROMIDE 0.2 MG/ML SOLUTION 2.5 MG INH ×4 (00:12→18:43)
[2024-12-14] MEDS: INSULIN REGULAR, HUMAN 100 UNIT/ML VIAL SC (05:35)
[2024-12-14] MEDS: LACTULOSE 10 GM/15 ML SOLUTION GT ×3 (05:35→21:14)
[2024-12-14] MEDS: AMOXICILLIN GT ×3 (05:35→21:14)
[2024-12-14] MEDS: CLAVULANATE GT ×3 (05:35→21:14)
[2024-12-14] MEDS: LEVOTHYROXINE 50 MCG TABLET GT (05:35)
[2024-12-14] MEDS: ACET GT ×2 (07:30→18:00)
[2024-12-14] MEDS: HYDRO GT ×2 (07:30→18:00)
[2024-12-14] MEDS: CITALOPRAM HYDROBROMIDE 10 MG TABLET GT (08:25)
[2024-12-14] MEDS: FOLIC ACID 1 MG TABLET GT (08:26)
[2024-12-14] MEDS: FINASTERIDE 5 MG TABLET GT (08:26)
[2024-12-14] MEDS: CYANOCOBALAMIN (VITAMIN B-12) 500 MCG TABLET 1000 MCG GT (08:26)
[2024-12-14] MEDS: POTASSIUM CHLORIDE 20 MEQ TAB.ER.PRT GT (08:27)
[2024-12-14] MEDS: METOPROLOL 25 MG TABLET GT (08:27)
--- NOTE | 2024-12-14 19:18 | PC.NURSE ---
Resident is awake and alert, follows commands, appears to be very depressed. Denies having pain. Heart rate is 118, 02 sat. is 90.Continue to have bloody secretions. was given Narco for the elevated heart rate. will continue to monitor.
[2024-12-14] MEDS: DONEPEZIL HCL 5 MG TABLET 10 MG GT (21:14)
--- NOTE | 2024-12-14 22:42 | PD.SAPROG ---
Progress Note - SubAcute DIAGNOSIS (1) Papillary thyroid carcinoma: Status: Chronic (2) Lymphadenopathy of head and neck: Status: Chronic (3) History of dementia: Status: Chronic (4) Diabetes: Status: Chronic (5) HTN (hypertension): Status: Chronic (6) Tracheostomy in place: Status: Chronic (7) PEG (percutaneous endoscopic gastrostomy) status: Status: Chronic OBJECTIVE Most recent vital signs: Last Vital Signs Temp 98.8 F 12/14/24 17:54 Pulse 114 H 12/14/24 21:13 Resp 23 H 12/14/24 17:54 BP 107/66 12/14/24 21:13 Pulse Ox 95 12/14/24 17:54 O2 Del Method Blow-by 12/14/24 17:54 O2 Flow Rate 10 12/14/24 12:35 FiO2 50 12/14/24 12:35 Neurological:: alert Speech:: nods head and mouths words Answers questions:: yes Respiratory:: shallow breathing Cardiovascular: RRR Abdomen: soft Tracheostomy:: to blow by Feeding per:: G tube Complaints:: none ASSESSMENT & PLAN Assessment: End stage thyroid cancer on comfort measures and DNR code status with comorbidities as outlined Pt noticed to have blood tinged respiratory secretions and Lovenox held for few days and monitored as well as PT/ PTT reviewed. Urine noticed to be cloudy with pt feeling mild discomfort. Ordered UA . Pt/s code status to DNR with no heroics but medicines for comfort to mitigate pain are being monitored Plan: Assure comfort and every support
[2024-12-15] VITALS (11 sets, daily range): BP systolic 99–149; BP diastolic 64–78; PULSE 62–134; RESP 16–22; TEMP 36.3–36.8; O2SAT 95–100
[2024-12-15] MEDS: HYDRO GT ×4 (00:15→23:30)
[2024-12-15] MEDS: ACET GT ×4 (00:15→23:30)
[2024-12-15] MEDS: IPRATROPIUM BROMIDE 0.2 MG/ML SOLUTION 2.5 MG INH ×4 (01:08→18:46)
[2024-12-15] MEDS: CLAVULANATE GT ×3 (05:16→21:00)
[2024-12-15] MEDS: AMOXICILLIN GT ×3 (05:16→21:00)
[2024-12-15] MEDS: LEVOTHYROXINE 50 MCG TABLET GT (05:16)
[2024-12-15] MEDS: LACTULOSE 10 GM/15 ML SOLUTION GT ×3 (05:16→21:00)
[2024-12-15] MEDS: INSULIN REGULAR, HUMAN 100 UNIT/ML VIAL SC (05:42)
[2024-12-15] MEDS: FINASTERIDE 5 MG TABLET GT (08:39)
[2024-12-15] MEDS: CYANOCOBALAMIN (VITAMIN B-12) 500 MCG TABLET 1000 MCG GT (08:39)
[2024-12-15] MEDS: FOLIC ACID 1 MG TABLET GT (08:39)
[2024-12-15] MEDS: POTASSIUM CHLORIDE 20 MEQ TAB.ER.PRT GT (08:40)
[2024-12-15] MEDS: CITALOPRAM HYDROBROMIDE 10 MG TABLET GT (09:13)
--- NOTE | 2024-12-15 14:21 | PC.SS ---
IDT Note: Resident MARTHA Henry and her daughter attended meeting, MD present went over questions with Elaine. All questions answered with no questions or concerns. Report read by charge nurse all disciplines went over their reports with no questions or concerns. Family is at bedside daily, resident mood is adequate with no changes in mood and behavior. This SSD will make daily contact and will offer support visits.
[2024-12-15] MEDS: DONEPEZIL HCL 5 MG TABLET 10 MG GT (20:50)
--- NOTE | 2024-12-15 21:25 | PC.NURSE ---
Resident currently does not have a tyl. order as per protocol orders, made aware, no orders given at this time, resident currently on [place] 5-325 [id number] PRN.
[2024-12-16] VITALS (10 sets, daily range): BP systolic 101–127; BP diastolic 63–77; PULSE 106–128; RESP 16–22; TEMP 36.9–37.5; O2SAT 94–99
[2024-12-16] MEDS: IPRATROPIUM BROMIDE 0.2 MG/ML SOLUTION 2.5 MG INH ×4 (00:21→18:50)
[2024-12-16] MEDS: HYDRO GT ×3 (05:30→20:48)
[2024-12-16] MEDS: ACET GT ×3 (05:30→20:48)
--- NOTE | 2024-12-16 07:02 | PC.NURSE ---
Resident had no behavioral issues due to decreased dosage of Paxil. On ATB for PNA, no ADR's noted. Weston is sleeping at this time.
[2024-12-16] MEDS: CITALOPRAM HYDROBROMIDE 10 MG TABLET GT (07:56)
[2024-12-16] MEDS: FOLIC ACID 1 MG TABLET GT (07:57)
[2024-12-16] MEDS: CYANOCOBALAMIN (VITAMIN B-12) 500 MCG TABLET 1000 MCG GT (07:57)
[2024-12-16] MEDS: FINASTERIDE 5 MG TABLET GT (07:57)
[2024-12-16] MEDS: METOPROLOL 25 MG TABLET GT ×2 (07:58→20:49)
[2024-12-16] MEDS: POTASSIUM CHLORIDE 20 MEQ TAB.ER.PRT GT (07:59)
[2024-12-16] MEDS: SCOPOLAMINE 1.5 MG TD (12:45)
[2024-12-16] MEDS: AMOXICILLIN GT ×2 (14:18→21:32)
[2024-12-16] MEDS: CLAVULANATE GT ×2 (14:18→21:32)
[2024-12-16] MEDS: LACTULOSE 10 GM/15 ML SOLUTION GT ×2 (14:18→21:32)
--- NOTE | 2024-12-16 15:32 | PC.NURSE ---
Resident PPD placed on 12/04/24 due to late arrival on 12/03/24. LFA and marked with surgical marker. On 12/07/24 PPD read without induration. This note is made due to possible loss of notation in worklist. Resident #2 PPD placed 12/14/24 RFA and marked with surgical marker. On 12/16/24 PPD read without induration.
[2024-12-16] MEDS: INSULIN REGULAR, HUMAN 100 UNIT/ML VIAL SC (17:24)
--- NOTE | 2024-12-16 19:12 | PC.NURSE ---
Resident is awake and alert, No behaviors today, continue to have elevated Heart rate, 110-120. Given pain medication as needed. Continue to have tracheal bleeding, continue to monitor.
[2024-12-16] MEDS: DONEPEZIL HCL 5 MG TABLET 10 MG GT (20:48)
[2024-12-17] VITALS (10 sets, daily range): BP systolic 109–128; BP diastolic 71–80; PULSE 112–143; RESP 18–25; TEMP 36.4–37.3; O2SAT 95–100
[2024-12-17] MEDS: IPRATROPIUM BROMIDE 0.2 MG/ML SOLUTION 2.5 MG INH ×4 (00:30→18:25)
[2024-12-17] MEDS: CLAVULANATE GT (05:30)
[2024-12-17] MEDS: AMOXICILLIN GT (05:30)
[2024-12-17] MEDS: INSULIN REGULAR, HUMAN 100 UNIT/ML VIAL SC ×2 (05:30→17:04)
[2024-12-17] MEDS: LEVOTHYROXINE 50 MCG TABLET GT (05:31)
[2024-12-17] MEDS: LACTULOSE 10 GM/15 ML SOLUTION GT ×3 (05:31→21:07)
[2024-12-17] MEDS: ACET GT ×3 (07:37→20:54)
[2024-12-17] MEDS: HYDRO GT ×3 (07:37→20:54)
[2024-12-17] MEDS: CITALOPRAM HYDROBROMIDE 10 MG TABLET GT (08:15)
[2024-12-17] MEDS: METOPROLOL 25 MG TABLET GT ×2 (08:15→20:54)
[2024-12-17] MEDS: CYANOCOBALAMIN (VITAMIN B-12) 500 MCG TABLET 1000 MCG GT (08:15)
[2024-12-17] MEDS: FOLIC ACID 1 MG TABLET GT (08:15)
[2024-12-17] MEDS: FINASTERIDE 5 MG TABLET GT (08:15)
[2024-12-17] MEDS: POTASSIUM CHLORIDE 20 MEQ TAB.ER.PRT GT (08:16)
[2024-12-17] MEDS: DONEPEZIL HCL 5 MG TABLET 10 MG GT (20:53)
[2024-12-18] VITALS: BP 108/59; PULSE 120; RESP 18; TEMP 36.6
[2024-12-18 00:30] VITALS: PULSE 136; PULSE 145; RESP 20; O2SAT 96; O2SAT 99
[2024-12-18] MEDS: IPRATROPIUM BROMIDE 0.2 MG/ML SOLUTION 2.5 MG INH ×2 (00:30→06:55)
[2024-12-18] MEDS: ACET GT ×2 (03:11→05:28)
[2024-12-18] MEDS: HYDRO GT ×2 (03:11→05:28)
[2024-12-18] MEDS: LEVOTHYROXINE 50 MCG TABLET GT (05:29)
[2024-12-18] MEDS: LACTULOSE 10 GM/15 ML SOLUTION GT (05:30)
[2024-12-18 05:48] VITALS: BP 87/67; PULSE 160; RESP 26; TEMP 37.1; O2SAT 97
--- NOTE | 2024-12-18 06:01 | PC.NURSE ---
Resident noted with increased heart rate and increased work of breathing, RR: 26, BP: 87/67, 92% on 70% FiO2, notified Dr Paul with new order for x1 dose of [place] and if not effective may start Morphine 1mg IM/IV every 4 hours for respiratory distress. Notified Elaine, of resident. All questions and concerns addressed with family.
--- NOTE | 2024-12-18 06:30 | PC.NURSE ---
Nurse to place morillo catheter per family's request, resident is comfort measures at this time
[2024-12-18 06:55] VITALS: PULSE 147; PULSE 150; RESP 18; O2SAT 97
--- NOTE | 2024-12-18 07:11 | PD.ONCPROG ---
Documentation for date of: 12/18/24 Subjective Subjective Interval history: Pt with significant decline, pulse > 160 respiration rate 26. No on comfort measures with MS prn Exam Vital Signs Temp Pulse Resp BP Pulse Ox O2 Del Method O2 Flow Rate 98.7 F 160 H 26 H 87/67 L 97 Blow-by 10 12/18/24 05:48 12/18/24 05:48 12/18/24 05:48 12/18/24 05:48 12/18/24 05:48 12/18/24 05:48 12/18/24 00:30 FiO2 50 12/18/24 00:30 Objective Labs 12/07/24 14:05 12/03/24 17:56 ABG Interpretation ABG results: 12/03/24 17:09 ABG pH 7.41 ABG pCO2 51 H ABG pO2 58 L* ABG HCO3 33 H ABG O2 Saturation 90 L ABG Base Excess 7 H Assessment & Plan A&P Narrative 1. Locally advanced stage IV papillary thyroid carcinoma unresectable. 2. Has trach and PEG tube in place. Receiving comfort measures. Discussed with Family Time Spent With Patient Time: Total time spent is greater than 50% in coordination of care (as documented) at patient's floor/unit and/or counseling patient:
--- NOTE | 2024-12-18 07:34 | PC.NURSE ---
Family at bedside wants morphine PRN to be given IM instead of IVP
--- NOTE | 2024-12-18 07:40 | PC.NURSE ---
Received a call from Dr Bergeron earlier today gave update about the resident. Mentioned to MD that Dr Paul had ordered morphine sulfate PRN. No new order received from Dr Bergeron.
[2024-12-18] MEDS: MORPHINE SULFATE 10 MG/ML VIAL IM (08:23)
--- NOTE | 2024-12-18 11:23 | PC.SS ---
This SSD informed by resident LIC nurse resident was not doing well, LIC nurse ordered courtesy cart. This SSD requested sandwich and drink cart operator services for spiritual care, sandwich and drink cart operator came in to meet with family at resident bedside.
--- NOTE | 2024-12-18 12:13 | PC.NURSE ---
At around 10:56, resident noted to be pulseless, breathless, no measurable blood pressure , skin cool and mottled, pupils not responsive to light and no response to light. Family members at bedside. Called Dr Paul and made aware at 11:01. Called house sup at 11:02 to have someone pronounce. Resident was pronounced / at 11:30. Called [facility] at 11:50 spoke with Shira ESCOBEDO# [phone]. [facility] [place] [facility] of choice.
--- NOTE | 2024-12-18 14:25 | PC.NURSE ---
Called [facility] at 14:19, spoke with Olga about the remains to be released
--- NOTE | 2024-12-18 15:41 | PC.NURSE ---
[facility] [place] at 15:35
--- NOTE | 2024-12-18 16:11 | PC.SS ---
This SSD reviewed all inventory with MARTHA Clark. She said she would donate all items but would take his glasses with her. Inventory reviewed and signed.
== END 2024-12-18 11:30 | disposition expired | DRG 951 ==
PROVIDERS: Admitting Provider Specialist; Visit Provider Specialist
DX: Z51.5 Encounter for palliative care (principal); C73 Malignant neoplasm of thyroid gland; F03.90 Unspecified dementia, unspecified severity, without behavioral disturbance, psychotic disturbance, mood disturbance, and anxiety; E11.9 Type 2 diabetes mellitus without complications; K74.60 Unspecified cirrhosis of liver; I10 Essential (primary) hypertension; Z93.0 Tracheostomy status; Z93.1 Gastrostomy status; Z66 Do not resuscitate; Z53.29 Procedure and treatment not carried out because of patient's decision for other reasons; Z86.73 Personal history of transient ischemic attack (TIA), and cerebral infarction without residual deficits
CPT/HCPCS: 36415; 36600; 80069; 81001; 82803; 82947; 84145; 84443; 85025; 85610; 85730; 87077; 87186; 87205; 92523; 92609; 93005; 94640; 94762

== ENCOUNTER 2024-12-12 05:56 | Emergency (ER) | payer OTHER, MEDICAID, SELFPAY ==
[2024-12-12] VITALS (8 sets, daily range): BP systolic 111–123; BP diastolic 66–75; PULSE 111–120; RESP 19–25; TEMP 37.4–38.2; O2SAT 86–94; BMI 36.5
--- NOTE | 2024-12-12 06:24 | XR_ITS ---
Examination: AP chest single view Technique one AP portable semiupright chest single view Exam date and time: December 12, 2024 0634 hrs. Comparison December 05, 2021 Indications: Chest pain shortness of breath onset today Findings: Significant bibasilar pneumonia Mild prominence left ventricle Ectatic enlarged thoracic aorta Tracheostomy tube. 5.1 cm above eveline Moderate osteopenia Impression: Significant bibasilar pneumonia
--- NOTE | 2024-12-12 06:24 | EKG_ITS ---
[facility] Test Date: 2024-12-12 Pat Name: RAMON RAMIREZ Department: Room: - Gender: Male Brim Curler: : 1950 Requested By: Марина Elizabeth Order Number: [id number] Reading MD: Марина Elizabeth Measurements Intervals [place] Rate: 118 P: 35 NC: 136 QRS: 43 QRSD: 83 T: -47 QT: 358 QTc: 503 Interpretive Statements SINUS TACHYCARDIA ST DEVIATION AND MODERATE T-WAVE ABNORMALITY, CONSIDER INFERIOR ISCHEMIA [-0.1+ mV T WAVE IN II/aVF] Compared to ECG 12/04/2024 14:30:31 Possible ischemia now present Sinus rhythm no longer present T-wave abnormality still present /store/S0/[id number].pdf
--- NOTE | 2024-12-12 06:29 | PC.NURSE ---
RT Oneal at bedside, aware that pt's current o2 sat is 86%. States that pt has had low o2 sat all morning . Pt on 10L 50% at this time.
--- NOTE | 2024-12-12 06:30 | XR_ITS ---
Examination: CT soft tissue neck, with intravenous contrast. 2-D coronal reconstructions. 2-D sagittal reconstructions. Date and time of exam :December 12, 2024 0932 hrs. Indications: History neck Mass. This week, bleeding from the patient's tracheostomy tube., CT soft tissue neck October 09, 2024 large soft tissue right oropharyngeal mass with metastatic carotid triangle lymphadenopathy CTDI: vol (mGy):14 DLP: (mGycm):377 Technique: 1.25 mm axial sections of the neck of the obtained. Coronal and sagittal reconstructions have been obtained. Intravenous contrast administered 50 cc Isovue-370. Low dose protocols were performed. One or more of the following dose reduction techniques were used; automated exposure control, adjustment of the mA and/or KV according to patient size, use of iterative reconstruction technique. Findings: Again noted massive right oropharyngeal mass with necrotic center which is obliterating the oropharyngeal airway, the mass extending into the lateral neck, markedly increased in size compared to October 09, 2024, the lateral neck mass now measuring 10 x 8 cm compared to 6 x 3.5 cm on October 09, 2024 This mass is extending caudad into and completely effacing the larynx and even impinging upon the seventh colonic region where the tracheostomy tube is The mass extends retroclavicular and is now destroying the lateral margin of the right hyoid bone Extensive pleural parenchymal disease partially visualized in the upper lung zones Impression: Massive increase in size of the oropharyngeal mass and right neck metastatic lymphadenopathy as above
--- NOTE | 2024-12-12 07:15 | PC.NURSE ---
Assume care for this Pt and got report from Violet BECKER.
[2024-12-12 07:16] LABS: Collection Type, Urine Clean Catch
[2024-12-12 07:18] LABS: Lactate (Lactic Acid) 2.7 mMol/L (0.4-2.0)
[2024-12-12 07:22] LABS: Basophils # (Auto) 0.1 Thou/mm3 (0.0-0.2); Basophils % (Auto) 0 % (0-2.5); Eosinophils # (Auto) 1.3 Thou/mm3 (0.0-0.5); Eosinophils % (Auto) 8 % (0-10); Hematocrit 32.3 % (41.0-53.0); Hemoglobin 10.5 g/dL (13.5-16.0); Immature Granulocytes % (Auto) 1 % (0-0); Immature Granulocytes Auto 0.09 Thou/mm3 (0.00-0.00); Lymphocytes # (Auto) 2.4 Thou/mm3 (1.0-4.8); Lymphocytes % (Auto) 15 % (10-50); Mean Corpuscular HGB Conc 32.5 g/dl (31.0-37.0); Mean Corpuscular Hemoglobin 29.7 pg (25.0-35.0); Mean Corpuscular Volume 92 fL (80-100); Monocytes # (Auto) 1.2 Thou/mm3 (0.0-0.8); Monocytes % (Auto) 8 % (0-12); Neutrophils % (Auto) 68 % (37-80); Nucleated Red Blood Cell % 0 /100 WBC (0); Platelet Count 164 Thou/mm3 (140-440); RDW Standard Deviation 52.1 fL (35.1-43.9); Red Blood Count 3.53 Miln/mm3 (4.50-5.90); White Blood Count 16.1 Thou/mm3 (3.8-10.6)
[2024-12-12 07:37] LABS: Amorphous Crystals,Urine Present (Absent); Bacteria,Urine Rare; Bilirubin,Urine Negative (Negative); Blood,Urine Negative (Negative); Clarity,Urine Turbid (Clear/Hazy); Color,Urine Yellow (Lt Yel-Yel); Glucose, Urine Negative (Negative); Ketones,Urine Negative (Negative); Leukocyte Esterase,Urine Negative (Negative); Nitrite,Urine Negative (Negative); PH,Urine 6.5 (5.0-7.0); Protein,Urine Trace (Neg - Trace); RBC,Urine 1 /hpf (0-3); Specific Gravity,Urine 1.019 (1.001-1.035); Squamous Epithelial Cell,Urine < 1 /hpf (0-5); Transitional Epi Cells,Urine < 1 /hpf (0-5); WBC,Urine 1 /hpf (0-5)
[2024-12-12 07:53] LABS: B-Type Natriuretic Peptide 83 pg/mL (0-100)
--- NOTE | 2024-12-12 07:54 | EDNOTE_ITS ---
ED General RME/HPI General Chief complaint: General Adult/Misc Complain Stated complaint: BLEEDING FROM TRACH Time Seen by Provider: 12/12/24 06:22 Arrival date/time: 12/12/24 05:56 RME / HPI RME / HPI narrative: DR. VILLALTA MAIN ED EVALUATION: 74 year male with past medical history significant for papillary thyroid cancer with right neck mass presents to the Emergency Department from our subacute unit for increased blood secretions from his tracheostomy, enlarging right neck mass and decreased O2 saturation. On arrival to the ED O2 saturation 86% however oxygen was not connected. On connecting O2, saturation improved to 97%. Patient indicates with nodding that he has increased pain in the area of the mass. He is a DNR wth selective treatment. However, per subacute's nurse patient was alert and oriented and wanted to come to the emergency for evaluation. Related Data Home Medications ?Medication ?Instructions ?Recorded ?Confirmed metoprolol tartrate 25 mg tablet 25 mg PO BID 11/27/20 02/20/22 donepezil 10 mg tablet 10 mg PO QDAY 02/20/22 02/20/22 Previous Rx's ?Medication ?Instructions ?Recorded citalopram 20 mg tablet (Celexa) 20 mg PO QDAY #30 tabs 01/01/20 lactulose 10 gram/15 mL (15 mL) 20 g (30 mL) PO BID #1,440 mL 12/05/21 oral solution piperacillin-tazobactam 3.375 3.375 g (56.25 mL) IV Q8H 7 days 12/12/24 gram/50 mL dextrose(iso-os) IV piggyback (Zosyn) vancomycin 1,000 mg intravenous 1 mg IV DAILY 5 days #5 ea 12/12/24 injection Allergies Allergy/AdvReac Type Severity Reaction Status Date / Time No Known Allergies Allergy Verified 10/09/24 11:54 Review of Systems Review of Systems Systems Reviewed: All systems reviewed, normal except as documented Narrative Review of Systems: GEN: No fever, no chills, no weight loss EYES: No discharge, no visual changes, no pain HEENT: No ear pain, no congestion, no sore throat PULM: No shortness of breath, no cough, no congestion CV: No chest pain, no dyspnea on exertion, no palpitations GI: No nausea, no vomiting, no diarrhea, no pain, no constipation : No frequency, no urgency and no dysuria MUSC/SKEL: No joint pain, no back pain SKIN: No rash PSYCH: No hallucinations, no depression HEME/LYMPH: No easy bleeding or bruising tendencies NEURO: No weakness, no headache Past Medical History Past Medical History NEUROLOGIC: Positive Dementia; Negative Neurological Disorders, Seizures or Traumatic Brain Injury CARDIAC: Positive Hypertension; Negative Cardiac Disorders or Congestive Heart Failure RESPIRATORY: Positive Asthma and Sleep Apnea; Negative Chronic Obstructive Pulmonary Disease (COPD) GASTROINTESTINAL: Positive Obesity; Negative Gastrointestinal Disorders GENITOURINARY: Negative Genitourinary Disorders or Renal Disease MUSCULOSKELETAL: Negative Musculoskeletal Disorders, Myasthenia Gravis or Osteomyelitis ENDOCRINE: Positive Diabetes Mellitus Type 2; Negative Diabetes Mellitus Type 1 or Hyperthyroidism HEMATOLOGIC: Negative Blood Disorders or Sickle Cell Disease PSYCHO/SOCIAL: Positive Psychiatric Problems, Depression and Anxiety OTHER HISTORY: Positive Hospitalization and Cancer (Suspected thyroid); Negative Autoimmune Disease, Blood Transfusions, Blood Transfusion Reaction, Anesthesia Reactions or Chemotherapy Family History FAMILY HISTORY: Negative Family Cardiac Disorders Surgical History SURGICAL: Positive Tracheostomy and Gastrostomy; Negative Endocrine Surgery, Abdominal Surgery or Nephrectomy Social History SMOKING STATUS: Never smoker SECOND HAND EXPOSURE: No SUBSTANCE USE: prescription drug (Diazepine, Ativan) ED Exam Narrative Physical exam: GENERAL APPEARANCE: awake, able to nod yes or no, mild drooling, VITALS: All vitals were reviewed and the pulse ox is 86%, hypoxic, RT did not connect O2 when nurse did the O2 sat wsa 97%. HEENT: Normocephalic, atraumatic; pupils equal, round, reactive to light; EOMI; mucous membranes pink, moist; oropharynx clear, mild drooling NECK: very large right neck mass, tender on palpation LUNGS: CTABL; no wheezes, no rales, no rhonchi HEART: Regular rate, regular rhythm; normal S1, S2; no murmurs ABDOMEN: non distended; normal BS; soft, no tenderness, no guarding, no rebound; no masses, no organomegaly, no hernia BACK: no CVA tenderness EXTREMITIES: atraumatic; no edema NEUROLOGIC: at baseline PSYCHIATRIC: at baseline SKIN: warm, dry, normal color; no rashes Course Course Course Narrative: 0652: Sepsis alert initiated. Orders made at this time are congruent with ED Adult Sepsis Order List. Re-evaluation is to be completed. 1042: Fluids started. 1112: Sepsis reassessment performed consisting of lab review, vitals, physical exam including auscultation of heart, lungs, and visual evaluation of capillary refills, mucosal membranes and extremities. Reviewed CT results with daughter at bedside. Advised that I will discuss pain control with Dr. Paul. Discussed with Dr. Paul prior to discharge. He will continue pain management in subacute. Discussed prognosis with daughter. Daughter is aware that the cancer is terminal and there is no available treatment that would improve his quality of life other than pain management. Daughter states that Dr. Bergeron oncology made it clear to the family yesterday that there is no available treatment and that they understood that his prognosis is terminal. Quality Measures none Orders Category Date Time Status CT Screening NOW Care 12/12/24 06:33 Completed Anthropology Lecturer NOW Care 12/12/24 06:24 Completed EKG (ED ONLY) *Do not use* NOW Care 12/12/24 06:24 Completed Garcia [Urinary Catheter] NOW Care 12/12/24 06:[address] soft tissue neck w con Stat Exams 12/12/24 06:30 Completed EKG (ED Only) Stat Exams 12/12/24 06:24 Draft XR chest 1V portable Stat Exams 12/12/24 06:24 Completed B-Type Natriuretic Peptide Stat Lab 12/12/24 07:08 Completed Blood Culture (Lab) Stat Lab 12/12/24 07:08 Received CBC Stat Lab 12/12/24 07:08 Completed Comprehensive Metabolic Panel Stat Lab 12/12/24 07:08 Completed Lactate (Lactic Acid) Stat Lab 12/12/24 07:08 Completed Lactic Acid, 3 HR Stat Lab 12/12/24 10:25 Completed Lipase Stat Lab 12/12/24 07:08 Completed Magnesium Stat Lab 12/12/24 07:08 Completed Partial Thromboplastin Time Stat Lab 12/12/24 07:08 Completed Procalcitonin Stat Lab 12/12/24 07:08 Completed Prothrombin Time with INR Stat Lab 12/12/24 07:08 Completed Troponin I Stat Lab 12/12/24 07:08 Completed Urinalysis Stat Lab 12/12/24 07:08 Completed Urine Culture Stat Lab 12/12/24 06:24 Received HYDROmorphone INJ [Dilaudid Inj] Med 12/12/24 11:56 Discontinued 1 mg IVP X1 ONE Metoclopramide Inj [Reglan Inj] Med 12/12/24 11:58 Discontinued 10 mg IVP X1 ONE Sodium Chloride 0.9% 1000 ml [Ns] 1,000 ml Med 12/12/24 10:17 Discontinued IV 999 mls/hr Vancomycin Inj 1,000 mg Med 12/12/24 09:43 Discontinued Sodium Chloride 0.9% 250 ml [Ns] 250 ml IV X1 cefTRIAXone [Rocephin] 1,000 mg Med 12/12/24 09:44 Discontinued Sodium Chloride 0.9% [Ns] 50 ml IV X1 Vital Signs Vital signs: Vital Signs Pulse Rate 120 H 12/12/24 06:23 Respiratory Rate 19 12/12/24 06:23 Blood Pressure 118/72 12/12/24 06:23 Pulse Oximetry (%) 86 L 12/12/24 06:23 Oxygen Flow Rate 10 12/12/24 06:23 Fraction of Inspired Oxygen 50 12/12/24 06:23 [facility] Patient data External records reviewed:: [facility] previous records (Reviewed Radiation Oncology note by Dr. Bergeron, dated 12/11/24 ) Clinical information provided by:: patient and other (specify) (subacute nurse) Social determinants that could affect healthcare access:: housing (subacute unit) Patient has the following chronic illnesses:: Indolent papillary thyroid cancer, right mass to the right side of the neck, followed by Dr Bergeron How is presenting disease/condition affected by chronic disease/condition?: e xacerbated by Evaluation data The following diagnostics were reviewed and interpreted by me:: lab results, radiology exam(s) and EKG tracing(s) (EKG done at 0632 hours: sinus tachycardia, rate 118, QTc 503,) Lab and/or radiology exams considered but not ordered:: none Interpretation Summary: Procedure(s): XR chest 1V portable Accession Number(s): [id number] cc: Giancarlo Cunningham MD; Марина Villalta MD~ Examination: AP chest single view Technique one AP portable semiupright chest single view Exam date and time: December 12, 2024 0634 hrs. Comparison December 05, 2021 Indications: Chest pain shortness of breath onset today Findings: Significant bibasilar pneumonia Mild prominence left ventricle Ectatic enlarged thoracic aorta Tracheostomy tube. 5.1 cm above evelien Moderate osteopenia Impression: Significant bibasilar pneumonia Dictated By: Giancarlo Cunningham MD Procedure(s): CT soft tissue neck w con Accession Number(s): [id number] cc: Giancarlo Cunningham MD; Anuel Paul MD; Марина Villalta MD~ Examination: CT soft tissue neck, with intravenous contrast. 2-D coronal reconstructions. 2-D sagittal reconstructions. Date and time of exam :December 12, 2024 0932 hrs. Indications: History neck Mass. This week, bleeding from the patient's tracheostomy tube., CT soft tissue neck October 09, 2024 large soft tissue right oropharyngeal mass with metastatic carotid triangle lymphadenopathy CTDI: vol (mGy):14 DLP: (mGycm):377 Technique: 1.25 mm axial sections of the neck of the obtained. Coronal and sagittal reconstructions have been obtained. Intravenous contrast administered 50 cc Isovue-370. Low dose protocols were performed. One or more of the following dose reduction techniques were used; automated exposure control, adjustment of the mA and/or KV according to patient size, use of iterative reconstruction technique. Findings: Again noted massive right oropharyngeal mass with necrotic center which is obliterating the oropharyngeal airway, the mass extending into the lateral neck, markedly increased in size compared to October 09, 2024, the lateral neck mass now measuring 10 x 8 cm compared to 6 x 3.5 cm on October 09, 2024 This mass is extending caudad into and completely effacing the larynx and even impinging upon the seventh colonic region where the tracheostomy tube is The mass extends retroclavicular and is now destroying the lateral margin of the right hyoid bone Extensive pleural parenchymal disease partially visualized in the upper lung zones Impression: Massive increase in size of the oropharyngeal mass and right neck metastatic lymphadenopathy as above Dictated By: Giancarlo Cunningham MD Medications Medications considered but not ordered:: none Medication administrations:: Medication Administration History Discontinued Medications Hydromorphone HCl (Hydromorphone Inj 2 Mg/Ml Vial) 1 mg IVP X1 ONE Stop: 12/12/24 11:57 Last Admin: 12/12/24 12:19 Dose: 1 mg Documented By: MARIYA Vancomycin HCl 1,000 mg/ (Sodium Chloride) 250 mls @ 150 mls/hr IV X1 ONE Stop: 12/12/24 11:22 Last Infusion: 12/12/24 12:17 Dose: Infused Documented By: Admin: 12/12/24 10:43 Dose: 150 mls/hr Documented By: MARIYA Ceftriaxone Sodium 1,000 mg/ (Sodium Chloride) 50 mls @ 100 mls/hr IV X1 ONE Stop: 12/12/24 10:13 Last Infusion: 12/12/24 10:43 Dose: Infused Documented By: Admin: 12/12/24 10:08 Dose: 100 mls/hr Documented By: MARIYA Sodium Chloride (Ns) 1,000 mls @ 999 mls/hr IV .Q1H1M ONE Stop: 12/12/24 11:17 Last Infusion: 12/12/24 12:15 Dose: Infused Documented By: Admin: 12/12/24 10:42 Dose: 999 mls/hr Documented By: MARIYA Metoclopramide HCl (Metoclopramide Inj 5 Mg/Ml Vial 2 Ml) 10 mg IVP X1 ONE; Protocol Stop: 12/12/24 11:59 Last Admin: 12/12/24 12:17 Dose: 10 mg Documented By: MARIYA see above Consultations Consultation(s) initiated? (list below): Yes Consultation #1 (Physician, Specialty, Details): Discussed with Dr. Paul prior to discharge. He will continue pain management in subacute. Time: 12:00 Diagnosis Differential Diagnosis ED Complaint MDM: papillary thyroid cancer, metastatic carcinoma, tracheosomy malfunction Most likely diagnosis given after review of the tests above:: Thyroid cancer Leukocytosis Admission Indicated Admission indicated?: not indicated Explain why admission is indicated or not indicated:: Patient has no emergent abnormalities on his studies and can be managed at the subacute unit by Dr. Paul. Admission Request Was there a request for admission?: No Disposition Plan Disposition Plan: Discharge (subacute unit) Medical Decision Making MDM Narrative MDM Narrative: I, Enma Gee am scribing for and in the presence of Dr. Villalta. Differential Diagnosis Differential Diagnosis: papillary thyroid cancer, metastatic carcinoma, tracheosomy malfunction Lab Data 12/12/24 07:08 12/12/24 07:08 Labs: Lab Results 12/12/24 12/12/24 Range/Units 07:08 10:25 WBC 16.1 H D (3.8-10.6) Thou/mm3 RBC 3.53 L (4.50-5.90) Miln/mm3 Hgb 10.5 L (13.5-16.0) g/dL Hct 32.3 L (41.0-53.0) % MCV 92 (80-100) fL MCH 29.7 (25.0-35.0) pg MCHC 32.5 (31.0-37.0) g/dl RDW Std Deviation 52.1 H (35.1-43.9) fL Plt Count 164 D (140-440) Thou/mm3 Neut % (Auto) 68 (37-80) % Lymph % (Auto) 15 (10-50) % [place] % (Auto) 8 (0-12) % Eos % (Auto) 8 (0-10) % Baso % (Auto) 0 (0-2.5) % Neut # (Auto) 11.0 H (1.8-7.7) Thou/mm3 Lymph # (Auto) 2.4 (1.0-4.8) Thou/mm3 [place] # (Auto) 1.2 H (0.0-0.8) Thou/mm3 Eos # (Auto) 1.3 H (0.0-0.5) Thou/mm3 Baso # (Auto) 0.1 (0.0-0.2) Thou/mm3 Immature Gran # (Auto) 0.09 H (0.00-0.00) Thou/mm3 Absolute Nucleated RBC 0.00 (0.00-0.00) Thou/mm3 Immature Gran % 1 H (0-0) % Nucleated RBC % 0 (0) /100 WBC PT 12.1 (9.0-12.2) Seconds INR 1.1 (0.9-1.3) APTT 27.1 (22.0-36.0) Seconds Sodium 135 L (136-145) mMol/L Potassium 4.0 (3.4-5.1) mMol/L Chloride 96 L (98-107) mMol/L Carbon Dioxide 34.5 H (20.0-31.0) mMol/L Anion Gap 5 L (7-16) BUN 16 (9-23) mg/dL Creatinine 0.4 L (0.6-1.3) mg/dL Estim Creat Clear Calc 193.8 (>60) mL/min eGFR > 60 (60 - ) See Note BUN/Creatinine Ratio 40 H (12-20) Ratio Glucose 138 H (74-106) mg/dL Calculated Osmolality 273 L (275-295) Lactic Acid 2.7 H 2.0 (0.4-2.0) mMol/L Calcium 10.2 (8.3-10.6) mg/dL Corrected Calcium 11.1 H (8.5-10.1) mg/dL Magnesium 1.9 (1.6-2.6) mg/dL Total Bilirubin 0.8 (0.3-1.2) mg/dL AST 17 (0-34) U/L ALT 20 (10-49) U/L Alkaline Phosphatase 170 H (46-116) U/L Troponin I < 0.002 (0.0-0.045) ng/mL B-Natriuretic Peptide 83 (0-100) pg/mL Total Protein 6.2 (5.7-8.2) gm/dL Albumin 2.9 L (3.4-4.8) gm/dL Globulin 3.3 (2.3-3.5) gm/dL Albumin/Globulin Ratio 0.9 L (1.2-2.2) Lipase 25 (12-53) U/L Procalcitonin 0.20 (0.0-0.49) ng/ml Ur Collection Type Clean Catch Urine Color Yellow (Lt Yel-Yel) Urine Clarity Turbid A (Clear/Hazy) Urine pH 6.5 (5.0-7.0) Ur Specific [place] 1.019 (1.001-1.035) Urine Protein Trace (Neg - Trace) Urine Glucose (UA) Negative (Negative) Urine Ketones Negative (Negative) Urine Blood Negative (Negative) Urine Nitrite Negative (Negative) Urine Bilirubin Negative (Negative) Urine Urobilinogen (Auto) 3.0 (0.0-1.0) mg/dL Ur Leukocyte Esterase Negative (Negative) Urine RBC 1 (0-3) /hpf Urine WBC 1 (0-5) /hpf Ur Squamous Epith Cells < 1 (0-5) /hpf Ur Transition Epith Cell < 1 (0-5) /hpf Amorphous Crystals Present A (Absent) Urine Bacteria Rare (None) Critical Care Time Critical Care Time Critical Care Time: Yes Total Critical Care Time (min.): 30 Attestation: The high probability of sudden, clinically significant deterioration in the patient?s condition required the highest level of my preparedness to intervene urgently. The services I provided to this patient were to treat and/or prevent clinically significant deterioration. Services included the following: chart data review, reviewing nursing notes and/or old charts, documentation time, microsoft bi consultant collaboration regarding findings and treatment options, medication orders and management, direct patient care, vital sign assessments and ordering, interpreting and reviewing diagnostic studies and lab tests. Aggregate critical care time includes only time during which I was engaged in work directly related to the patient?s care, as described above, whether at bedside or elsewhere in the Emergency Department. It did not include time spent performing other reported procedures or the services of residents, students, nurses or physician assistants. 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 Acute Disposition Comment: Subacute Prescriptions/Referrals Prescriptions/Med Rec: New vancomycin 1,000 mg recon soln 1 mg IV DAILY 5 Days Qty: 5 0RF Zosyn in dextrose (iso-osm) 3.375 gram/50 mL piggyback 3.375 g IV Q8H 7 Days No Action citalopram [Celexa] 20 mg tablet 20 mg PO QDAY Qty: 30 0RF metoprolol tartrate 25 mg tablet 25 mg PO BID Patient Comments: TAKE 1 TABLET BY MOUTH 2 TIMES A DAY lactulose 10 gram/15 mL (15 mL) solution 20 g PO BID Qty: 1440 0RF donepezil 10 mg Tablet 10 mg PO QDAY Referrals: Anuel Paul MD [Primary Care Provider] - In 1 week Problem List Clinical Impression: Thyroid cancer, Leukocytosis Patient/Caregiver Discharge Instructions Print Language: Egyptian Stand Alone Forms: Dina Award Info., Patient Portal Info Letter
[2024-12-12 08:08] LABS: Alanine Aminotransferase 20 U/L (10-49); Albumin, Serum 2.9 gm/dL (3.4-4.8); Albumin/Globulin Ratio 0.9 (1.2-2.2); Alkaline Phosphatase 170 U/L (46-116); Anion Gap 5 (7-16); Aspartate Amino Transferase 17 U/L (0-34); BUN/Creatinine Ratio 40 Ratio (12-20); Bilirubin,Total 0.8 mg/dL (0.3-1.2); Blood Urea Nitrogen 16 mg/dL (9-23); Calcium 10.2 mg/dL (8.3-10.6); Calcium (Corrected) 11.1 mg/dL (8.5-10.1); Carbon Dioxide 34.5 mMol/L (20.0-31.0); Chloride 96 mMol/L (98-107); Creatinine (Component) 0.4 mg/dL (0.6-1.3); Estimated Creatinine Clearance 193.8 mL/min (>60); Globulin 3.3 gm/dL (2.3-3.5); Glucose 138 mg/dL (74-106); Lipase 25 U/L (12-53); Magnesium 1.9 mg/dL (1.6-2.6); Osmolality,Calculated 273 (275-295); Sodium 135 mMol/L (136-145); Total Protein 6.2 gm/dL (5.7-8.2); Troponin I < 0.002 ng/mL (0.0-0.045); eGFR > 60 See Note
[2024-12-12 08:27] LABS: INR 1.1 (0.9-1.3); Partial Thromboplastin Time 27.1 Seconds (22.0-36.0); Prothrombin Time 12.1 Seconds (9.0-12.2)
[2024-12-12 10:14] LABS: Reflex Lactate? Y
[2024-12-12] MEDS: SODIUM CHLORIDE 0.9% 1000 ML 1,000 ML 999 ML IV (10:42)
[2024-12-12] MEDS: Vancomycin Inj 1,000 MG in SODIUM CHLORIDE 0.9% 250 ML 250 ML 150 MG IV (10:43)
[2024-12-12] MEDS: METOCLOPRAMIDE INJ 5 MG/ML VIAL 2 ML 10 MG IVP (12:17)
[2024-12-12] MEDS: HYDROmorphone INJ 2 MG/ML VIAL 1 MG IVP (12:19)
== END 2024-12-12 12:51 ==
PROVIDERS: Emergency Provider Emergency Medicine; PCP Specialist
DX: D72.829 Elevated white blood cell count, unspecified (principal); Z66 Do not resuscitate; Z93.0 Tracheostomy status
CPT/HCPCS: 51702; 36415; 70491; 71045; 80053; 81001; 83605; 83690; 83735; 83880; 84145; 84484; 85025; 85610; 85730; 87040; 87086; 93005; 96365; 96366; 96367; 96375; 99291; A4649; J0696; J2765; J3371; J3490; J7030; J7050; Q9967